=== PATIENT | male | born 1955 | race Caucasian/White ===

== ENCOUNTER → 2018-07-30 07:48 | Outpatient (CLI) | payer OTHER, SELFPAY ==
--- NOTE | 2018-07-30 | DI.US.S_ITS ---
PROCEDURE: US ABD AORTA ANEURYSM SCREEN INDICATIONS: AAA SCREEN TECHNIQUE: Real time scanning was performed of the aorta and iliac arteries, with image documentation. COMPARISON: None. FINDINGS: Aorta: Proximal aortic could not be seen due to bowel gas. Mid-aorta measures 2.0 cm. Distal aortic diameter is 1.9 cm. Iliac arteries: Right common iliac artery measures 1.4 cm. Left common iliac artery measures 1.3 cm. IMPRESSION: The proximal third of the aorta could not be seen due to bowel gas. Elsewhere the aorta and the common iliac arteries appeared normal. Dictated by: Carlos Alberto Albrecht M.D. on 07/30/2018 at 10:36 Approved by: Carlos Alberto Albrecht M.D. on 07/30/2018 at 10:38
== END ==
PROVIDERS: PCP Family Medicine; Visit Provider Family Medicine
DX: Z13.6 Encounter for screening for cardiovascular disorders (principal)
CPT/HCPCS: 76706

== ENCOUNTER → 2018-10-07 13:43 | Outpatient (CLI) | payer OTHER, SELFPAY ==
--- NOTE | 2018-10-07 | DI.MRI.S_ITS ---
PROCEDURE: MR LUMBAR SPINE WO CON INDICATIONS: RIGHT LEG RADICULOPATHY TECHNIQUE: Noncontrast sagittal T1 spin echo and T2 fast echo, sagittal STIR, axial T1 and T2 fast spin echo through the lumbar spine. In cases with scoliosis, additional coronal T2 fast spin echo may be performed. COMPARISON: None. FINDINGS: Image quality: Excellent. Alignment and Curvature: Lumbar levoscoliosis is present. Grade 1 retrolisthesis of L2 on L3 and L3 on L4. Grade 1 retrolisthesis of L5 on S1. Bone Marrow: Diffuse endplate degenerative spurring and signal changes. Chronic appearing L1 compression fracture with mild anterior height loss. No associated marrow edema. Scattered small Schmorl's nodes. No acute vertebral body compression fractures. Subcentimeter rounded signal abnormality is seen in the L1 vertebral body, could be atypical hemangioma although technically nonspecific. Spinal Cord: Conus medullaris terminates at the L1-L2 level. Visualized cord demonstrates normal signal and size. Paraspinous Soft Tissues: No paravertebral masses. L1-L2: Broad-based posterior disc bulge and bilateral facet arthropathy. Mild dorsal epidural lipomatosis. Severe canal narrowing. Partial effacement of both lateral recesses. Moderate left and severe right foraminal narrowing L2-L3: Severe bilateral facet arthropathy. Moderate canal stenosis. Partial effacement of both lateral recesses. Moderate left and severe right foraminal narrowing. L3-L4: Broad-based posterior disc bulge mild surfactant appear ligamentum flavum hypertrophy and severe canal narrowing. There is severe effacement of both lateral recesses. Severe right and moderate left foraminal narrowing. L4-L5: Broad-based posterior disc bulge bilateral facet arthropathy. Moderate canal stenosis. Severe effacement of both lateral recesses. Severe right and mild left foraminal narrowing. L5-S1: Broad-based posterior disc bulge bilateral facet arthropathy. The mild/moderate canal narrowing. Severe effacement of both lateral recesses. Severe left and moderate right foraminal narrowing. IMPRESSION: Lumbar levoscoliosis, diffuse facet arthropathy and multiple spondylolistheses as above. Severe canal stenoses at L1-L2, L3-L4 with moderate canal narrowing elsewhere in the lumbar spine. Diffuse bilateral foraminal stenoses as detailed above. Diffuse, severe bilateral subarticular narrowing is also seen at essentially all lumbar spine levels. Dictated by: Jared Munson M.D. on 10/07/2018 at 14:54 Approved by: Jared Munson M.D. on 10/07/2018 at 15:03
== END ==
PROVIDERS: PCP Family Medicine; Visit Provider Family Medicine
DX: M47.26 Other spondylosis with radiculopathy, lumbar region (principal); M47.27 Other spondylosis with radiculopathy, lumbosacral region; M41.86 Other forms of scoliosis, lumbar region; M43.16 Spondylolisthesis, lumbar region; M43.17 Spondylolisthesis, lumbosacral region; M48.061 Spinal stenosis, lumbar region without neurogenic claudication; M48.07 Spinal stenosis, lumbosacral region
CPT/HCPCS: 72148

== ENCOUNTER → 2019-06-30 11:56 | Outpatient (CLI) | payer OTHER, SELFPAY ==
[2019-07-06 11:40] LABS: PSA Free % 32 % (calc) (> 25); PSA, Total 3.8 ng/mL (< 4.1)
== END ==
PROVIDERS: PCP Family Medicine; Visit Provider Urology
DX: R97.20 Elevated prostate specific antigen [PSA] (principal)
CPT/HCPCS: 36415; 84153; 84154

== ENCOUNTER → 2020-03-16 10:23 | Outpatient (CLI) | payer OTHER, SELFPAY ==
[2020-03-16 10:33] LABS: Bacteria Urine None Seen; RBC Urine None Seen (0-5/HPF); WBC Urine None Seen (0-5/HPF)
[2020-03-16 11:35] LABS: Appearance Urine UA CLEAR; Bilirubin Urine UA NEGATIVE (NEGATIVE); Color Urine UA YELLOW; Glucose Urine UA NEGATIVE (Negative); Ketones Urine UA NEGATIVE (NEGATIVE); Leukocyte Esterase Urine UA NEGATIVE (NEGATIVE); Nitrite Urine UA NEGATIVE (Negative); Occult Blood Urine UA NEGATIVE (Negative); Protein Urine UA NEGATIVE (Negative); Urobilinogen Urine UA 0.2 E.U./dL (0.2); pH Urine UA 5.5 (4.5-8.0)
[2020-03-16 11:39] LABS: Culture Indicated Urine Cult Not Indicated; Urine Comments Microscopic Normal
== END ==
PROVIDERS: PCP Student in an Organized Health Care Education/Training Program; Referring Provider Urology; Visit Provider Urology
DX: Z01.818 Encounter for other preprocedural examination (principal); R39.9 Unspecified symptoms and signs involving the genitourinary system
CPT/HCPCS: 81001

== ENCOUNTER 2020-03-17 10:11 | Emergency (ER) | payer OTHER, SELFPAY ==
[2020-03-17 10:33] VITALS: BP 164/93; PULSE 77; RESP 16; TEMP 37.1; O2SAT 97; BMI 34.5
[2020-03-17] MEDS: LIDOCAINE 2% (UROJET) 5 ML GEL (11:12)
--- NOTE | 2020-03-17 11:12 | PC.NURSE ---
Placed catheter w/o difficulty. No urine output. Placement checked and appears to be in good position (able to move catheter w/o pain, goes all the way to balloon port w/o obstruction). Bladder scan ordered.
--- NOTE | 2020-03-17 11:37 | PC.NURSE ---
Attempted to flush #16 fr urinary catheter, unable to flush and showed small blood clots in tube. Catheter discontinued. #[address] catheter placed w/o difficulty and immediate urine output, blood tinged w/ small flecks of clot out.
[2020-03-17 11:45] LABS: Bacteria Urine None Seen
--- NOTE | 2020-03-17 11:46 | ED.MALEGU ---
HPI - Male Genitourinary General Chief complaint: Urogenital-Male Stated complaint: cannot pee, painful Time Seen by Provider: 03/17/20 11:29 Source: patient Mode of arrival: Ambulatory Limitations: no limitations History of Present Illness HPI Narrative: CC: Urinary retention HPI: The patient is a 64-year-old male who states that he was unable to urinate since last night. Over the last 3 days he has had progressively decreased ability to urinate. He states that this primarily occurs at nighttime. He has an enlarged prostate but denies a history of prostate cancer. He has had a prostate biopsy in the past and has had no kidney disease pyelonephritis or prostatitis. He is denying any significant abdominal pain. He has had no fever chills or sweats no fall or injury no nausea vomiting or diarrhea. He is scheduled next week to have a TURP performed by Dr. Rojas. Related Data Previous Rx's Medication Instructions Recorded cephalexin [Keflex] 500 mg PO TID #15 cap 03/17/20 Allergies Allergy/AdvReac Type Severity Reaction Status Date / Time No Known Drug Allergies Allergy Verified 03/17/20 10:37 Review of Systems Review of Systems Narrative: The patient's review of systems were all negative except for those mentioned in the history of present illness. Patient History Social History Smoking Status: Never smoker Smoking Status: Never smoker alcohol intake frequency: 0-2 drinks per day Substance Use Type: does not use Exam Narrative Exam Narrative: PHYSICAL EXAM: CONSTITUTIONAL: Awake, Alert, Oriented, Coherent, Pleasant ,Cooperative in NAD. Does not appear toxic or ill. HEAD: AT/NC EENT: PERRL, FROM of eyes, NOSE:No epistaxis or nasal drainage MOUTH:Oral mucosa is moist and pink, posterior pharynx is without erythema or exudate. NECK: Supple, no obvious JVD, Trachea is midline without stridor, SPINE: Palpation of the cervical, Thoracic, Lumbar or Sacral spine reveals no gross deformity or tenderness. No CVA tenderness. THORAX: No deformity, retractions, chest wall tenderness. LUNGS: Clear, symmetrical breath sounds without respiratory distress. HEART: Normal heart tones, regular rhythm and rate without murmur. ABDOMEN: Soft, non-tender, normal bowel sounds without guarding, rebound, rigidity or palpable mass. EXTREMITIES: No edema, deformity, tenderness or cyanosis. SKIN: No rash, NEURO: Awake, alert, oriented, conversive, cranial nerves II-XII are symmetrical , moves all 4 extremities and is ambulatory. Initial Vital Signs Initial Vital Signs: Vital Signs Temperature 98.7 F 03/17/20 10:33 Pulse Rate 77 03/17/20 10:33 Respiratory Rate 16 03/17/20 10:33 Blood Pressure 164/93 H 03/17/20 10:33 Pulse Oximetry 97 03/17/20 10:33 Course Course Course Narrative: 1146: Initially the patient did not drain urine and had a couple of blood clots and it was felt that the patient was obstructed from blood clots. The patient now feels much better her and is draining urine. He has benign prostatic hypertrophy with obstructive uropathy. He is scheduled to see Dr. gil for TURP next week. We are waiting for his urine analysis. The patient has no other symptoms. 1230: The patient's urine reveals no infection but hematuria. The patient will be discharged home with a leg bag Orders Ordered: ED Orders 03/17/20 11:15 Urinalysis and Microscopic Stat Vital Signs Vital signs: Vital Signs - 8 hr 03/17/20 10:33 03/17/20 13:34 Temperature 98.7 F Pulse Rate 77 76 Respiratory Rate 16 16 Blood Pressure 164/93 H 154/93 H Pulse Oximetry 97 98 MDM - Male Genitourinary Lab Data Labs: Lab Results 03/17/20 Range/Units 11:15 Urine Color Yellow Urine Appearance Clear Urine pH 5.0 (4.5-8.0) Ur Specific Thurmond 1.025 (1.000-1.035) Urine Protein Negative (Negative) Urine Glucose (UA) Negative (Negative) g/dL Urine Ketones Negative (NEGATIVE) Urine Occult Blood 3+ H (Negative) Urine Nitrate Negative (Negative) Urine Bilirubin Negative (NEGATIVE) Urine Urobilinogen 0.2 (0.2) E.U./dL Ur Leukocyte Esterase Negative (NEGATIVE) Urine RBC >100/hpf H (0-5/HPF) Urine WBC 0-1/hpf (0-5/HPF) Ur Squamous Epith Cells 0-1 /hpf (0-5/HPF) Urine Bacteria None seen (None) Ur Culture Indicated? Cult not indicated Discharge Plan Departure Patient Disposition: Home Clinical Impression: Acute retention of urine Benign prostatic hyperplasia Qualifiers: Lower urinary tract symptom presence: symptoms absent Qualified Code(s): N40.0 - Benign prostatic hyperplasia without lower urinary tract symptoms Hematuria Qualifiers: Hematuria type: unspecified type Qualified Code(s): R31.9 - Hematuria, unspecified Discharge Date/Time: 03/17/20 13:34 Instructions: How to Care for Your Vazquez Catheter -- Male, DI for Urinary Retention in Men Activity Restrictions/Additional Instructions: 1. Follow-up with her Dr. Rojas who is going to perform your TURP. Follow-up with him to remove your catheter. 2. Return to the emergency department if the catheter obstructs you develop persistent uncontrolled nausea vomiting diarrhea, worsening abdominal pain, fever chills or sweats. 3. Take the antibiotic as prescribed. Prescriptions: New cephalexin [Keflex] 500 mg capsule 500 mg PO TID Qty: 15 RF: 0 Referrals: Dorinda Cruz MD [Primary Care Provider] -
[2020-03-17 11:53] LABS: Appearance Urine UA CLEAR; Bilirubin Urine UA NEGATIVE (NEGATIVE); Color Urine UA YELLOW; Glucose Urine UA NEGATIVE (Negative); Ketones Urine UA NEGATIVE (NEGATIVE); Leukocyte Esterase Urine UA NEGATIVE (NEGATIVE); Nitrite Urine UA NEGATIVE (Negative); Occult Blood Urine UA 3+ (Negative); Protein Urine UA NEGATIVE (Negative); Specific Gravity Urine UA 1.025 (1.000-1.035); Urobilinogen Urine UA 0.2 E.U./dL (0.2)
[2020-03-17 12:01] LABS: Culture Indicated Urine Cult Not Indicated; RBC Urine >100/HPF (0-5/HPF); Squamous Epithelial Cell Urine 0-1 /HPF (0-5/HPF); WBC Urine 0-1/HPF (0-5/HPF)
[2020-03-17 13:34] VITALS: BP 154/93; PULSE 76; RESP 16; O2SAT 98
== END 2020-03-17 13:34 | disposition home or self-care (01) ==
PROVIDERS: Emergency Provider Emergency Medicine; PCP Student in an Organized Health Care Education/Training Program
DX: R33.9 Retention of urine, unspecified (principal); R31.9 Hematuria, unspecified; N40.0 Benign prostatic hyperplasia without lower urinary tract symptoms
CPT/HCPCS: 51701; 51798; 81001; 99284

== ENCOUNTER 2020-03-22 21:45 | Emergency (ER) | payer OTHER, SELFPAY ==
[2020-03-22 21:56] VITALS: BP 141/84; PULSE 87; RESP 18; TEMP 36.7; O2SAT 97
--- NOTE | 2020-03-22 23:34 | ED.MALEGU ---
HPI - Male Genitourinary General Chief complaint: Urogenital-Male Stated complaint: BLOCKED CATHETER Time Seen by Provider: 03/22/20 22:14 Source: patient Mode of arrival: Ambulatory Limitations: no limitations History of Present Illness HPI Narrative: Patient here for malfunction of Vazquez catheter. Patient here 5 days ago for urinary retention and a 18 [place] Vazquez catheter placed. Has history of BPH. Does have a urologist. Has appointment this Friday. Today had leaking around the catheter. Nurses tried flushing and patient has spasms and does get returned within no spasms. Changing out catheter to a larger size unsuccessful. Denies any fever chills or recent illness. Related Data Previous Rx's Medication Instructions Recorded cephalexin [Keflex] 500 mg PO TID #15 cap 03/17/20 Allergies Allergy/AdvReac Type Severity Reaction Status Date / Time No Known Drug Allergies Allergy Verified 03/17/20 10:37 Review of Systems Review of Systems Narrative: GENERAL: Denies chills, fatigue, malaise, fever, sweats. HEENT: Denies sinus pain, ear pain, sore throat, difficulty swallowing, dizziness. RESPIRATORY: Denies dyspnea, cough, wheezing, hemoptysis, sputum. CARDIOVASCULAR: Denies chest pain, palpitations, orthopnea, edema, GASTROINTESTINAL: Denies nausea, vomiting, abdominal pain, diarrhea, constipation, melena. : Complains of leaking around the Vazquez catheter MUSCULOSKELETAL: denies weakness, joint pain, or bony pain SKIN: Denies rash, skin lesions, or other NEUROLOGIC: Denies weakness, headache, numbness, change in speech, confusion, seizures, incoordination. PSYCHIATRIC: No concerning psychosocial issues. ROS Unobtainable: All systems reviewed & are unremarkable except as noted in HPI and below Patient History Social History Smoking Status: Never smoker Smoking Status: Never smoker alcohol intake frequency: 0-2 drinks per day Substance Use Type: does not use Exam Narrative Exam Narrative: GENERAL: patient appears stated age. Well-nourished, well-developed patient, in no distress, not toxic HEAD: Atraumatic. Normocephalic. : No blood at meatus. At bedside with nurse flushing catheter. Able to irrigate with no spasms. No blood. NEURO: AOx3. SKIN: No rash or erythema of visible areas Initial Vital Signs Initial Vital Signs: Vital Signs Temperature 98.1 F 03/22/20 21:56 Pulse Rate 87 03/22/20 21:56 Respiratory Rate 18 03/22/20 21:56 Blood Pressure 141/84 H 03/22/20 21:56 Pulse Oximetry 97 03/22/20 21:56 Course Course Course Narrative: Unable to get larger Vazquez in. Patient states he would just like a smaller catheter in and be discharged home Orders Ordered: Discontinued Medications Lidocaine HCl (Urojet) 5 ml TOP NOW ONE Stop: 03/22/20 23:39 Reevaluation(s) Reevaluation #1: Smaller catheter placed in by nurse. Does have urine flow. No leaking at this time Time: 00:15 Vital Signs Vital signs: Vital Signs - 8 hr 03/22/20 21:56 03/23/20 01:09 Temperature 98.1 F Pulse Rate 87 64 Respiratory Rate 18 16 Blood Pressure 141/84 H 114/64 Pulse Oximetry 97 96 MDM - Male Genitourinary MDM Narrative Medical decision making narrative: No labs indicate this time. Patient is here for malfunction Vazquez catheter. Discharge Plan Departure Patient Disposition: Home Clinical Impression: Malfunction of Vazquez catheter Qualifiers: Encounter type: initial encounter Qualified Code(s): T83.011A - Breakdown (mechanical) of indwelling urethral catheter, initial encounter Discharge Date/Time: 03/23/20 01:09 Instructions: How to Care for Your Vazquez Catheter -- Male Activity Restrictions/Additional Instructions: Return immediately if worse. Continue home medications. See the urologist on Friday as scheduled. Prescriptions: No Action cephalexin [Keflex] 500 mg capsule 500 mg PO TID Qty: 15 RF: 0 Referrals: Dorinda Cruz MD [Primary Care Provider] -
--- NOTE | 2020-03-23 00:46 | PC.NURSE ---
He came with an excoriated area on the tip of his penis,this was present prior to my attempt at wade insertion,[place] turner had one unsuccessfull attempt at cathing him prior to my insertion with sterile technique.
[2020-03-23 01:09] VITALS: BP 114/64; PULSE 64; RESP 16; O2SAT 96
== END 2020-03-23 01:09 | disposition home or self-care (01) ==
PROVIDERS: Emergency Provider Emergency Medicine; PCP Student in an Organized Health Care Education/Training Program
DX: T83.011A Breakdown (mechanical) of indwelling urethral catheter, initial encounter (principal)
CPT/HCPCS: 51701; 51705; 51798; 99284

== ENCOUNTER 2020-03-25 08:33 | Emergency (ER) | payer OTHER, SELFPAY ==
[2020-03-25 08:34] VITALS: BP 148/76; PULSE 93; RESP 16; TEMP 36.6; O2SAT 95; BMI 33.9
--- NOTE | 2020-03-25 08:34 | ED.MALEGU ---
HPI - Male Genitourinary General Chief complaint: Urogenital-Male Stated complaint: Cathetor not working Time Seen by Provider: 03/25/20 08:34 Source: patient Mode of arrival: Ambulatory Limitations: no limitations History of Present Illness HPI Narrative: 64-year-old male nonsmoker with a history of BPH, recent urinary retention presents with a malfunctioning Wade catheter. He had been seen here recently for urinary retention and had a Wade catheter placed and had a TURP performed yesterday. He had been draining fine until he switch to his leg bag and now states that there is no urine in the bag. He has little bit of suprapubic tenderness but is otherwise and free of complaint. He contacted his urologist (Dr. Rojas at [facility]) and was encouraged to present here for evaluation MD Complaint: other Onset (ago): hour(s) Duration: constant Location: abdomen Radiation: penis Severity: mild Quality: aching Relieving factors: none Exacerbating factors: none Context: recent surgery Associated symptoms: Reports denies other symptoms Related Data Previous Rx's Medication Instructions Recorded cephalexin [Keflex] 500 mg PO TID #15 cap 03/17/20 Allergies Allergy/AdvReac Type Severity Reaction Status Date / Time Sulfa (Sulfonamide Allergy Verified 03/25/20 08:39 Antibiotics) Review of Systems Constitutional Constitutional: Denies chills, Denies fatigue, Denies fever(s), Denies frequent falls, Denies lethargy and Denies weakness Eyes Eyes: Denies change in vision, Denies eye discharge, Denies irritation and Denies loss of vision ENT Ears, Nose, Mouth, and Throat: Denies change in voice, Denies dizziness, Denies neck pain, Denies sore throat and Denies throat swelling Cardiovascular Cardiovascular: Denies chest pain, Denies irregular heart rhythm, Denies lightheadedness, Denies palpitations, Denies dyspnea, Denies dyspnea on exertion and Denies orthopnea Respiratory Respiratory: Denies cough, Denies dyspnea, Denies dyspnea on exertion and Denies wheezing Gastrointestinal Gastrointestinal: Denies abdominal pain, Denies change in bowel habits, Denies diarrhea, Denies nausea and Denies vomiting Genitourinary Genitourinary: Reports difficulty voiding Musculoskeletal Musculoskeletal: Denies neck pain and Denies numbness Integumentary/Breasts Skin/Breast: Denies pruritus, Denies erythema, Denies rash and Denies wounds Neurologic Neurologic: Denies behavioral changes, Denies confusion, Denies dizziness, Denies frequent falls, Denies loss of vision, Denies numbness and Denies weakness Psychiatric Psychiatric: Denies anxiety, Denies behavioral changes, Denies confusion, Denies depression, Denies homicidal ideation and Denies suicidal ideation Endocrine Endocrine: Denies fatigue, Denies flushing and Denies palpitations Hematologic/Lymphatic Hematologic/Lymphatic: Denies easy bruising Allergic/Immunologic Allergic/Immunologic: Denies urticaria, Denies throat swelling and Denies wheezing Patient History Social History Smoking Status: Never smoker Smoking Status: Never smoker alcohol intake frequency: 0-2 drinks per day Substance Use Type: does not use Exam Narrative Exam Narrative: GEN: AOx3 and in mild distress EYES: Pupils are equal, round, and reactive to light and accommodation. Extraoccular muscles are intact bilaterally. There is no subconjunctival hemorrhage or exudate. CHEST: Lungs are clear to auscultation bilaterally and free of wheezes, rales, or rhonchi. Heart rate is regular rhythm, there are no murmurs, clicks, rubs, or gallops. There is no chest wall tenderness. ABD: Abdomen is soft and nontender. There is no guarding or rebound. Bowel sounds are normal in all 4 quadrants. There is no mass or organomegaly. EXT: Full painless ROM of all extremities with no loss of sensation or strength. SKIN: Warm, pink, and dry. No erythema or rash Initial Vital Signs Initial Vital Signs: Vital Signs Temperature 97.9 F 03/25/20 08:34 Pulse Rate 93 H 03/25/20 08:34 Respiratory Rate 16 03/25/20 08:34 Blood Pressure 148/76 H 03/25/20 08:34 Pulse Oximetry 95 03/25/20 08:34 Course Course Course Narrative: bladder scan notes 23mL wade flushed by nursing. Consultations Consultation #1: call to Dr. Rojas ([facility]). Discussed case. He recommends removal of wade and he will see patient on Friday morning. Return precautions given and he must return if he becomes unable to urinate. Vital Signs Vital signs: Vital Signs - 8 hr 03/25/20 08:34 03/25/20 09:20 Temperature 97.9 F Pulse Rate 93 H 100 H Respiratory Rate 16 Blood Pressure 148/76 H 148/76 H Pulse Oximetry 95 99 Discharge Plan Departure Patient Disposition: Home Clinical Impression: Malfunction of Wade catheter Qualifiers: Encounter type: initial encounter Qualified Code(s): T83.011A - Breakdown (mechanical) of indwelling urethral catheter, initial encounter Discharge Date/Time: 03/25/20 09:14 Instructions: DI for Urinary Retention in Men Activity Restrictions/Additional Instructions: There is no evidence of an emergent or life threatening illness at this time, but follow up with your doctor in 1-2 days is recommended nonetheless to continue to rule out serious underlying causes of your symptoms. Please call the office for an appointment. Please return to the Emergency Department for any worsening or persistent symptoms such as inability to urinate. Please continue to take medications as directed. Prescriptions: No Action cephalexin [Keflex] 500 mg capsule 500 mg PO TID Qty: 15 RF: 0 Referrals: Dorinda Cruz MD [Primary Care Provider] - Micky Rojas DO [Non-Staff] -
--- NOTE | 2020-03-25 09:05 | PC.NURSE ---
Pt had TURP yesterday,no urine out today
[2020-03-25 09:20] VITALS: BP 148/76; PULSE 100; O2SAT 99
== END 2020-03-25 09:14 | disposition home or self-care (01) ==
PROVIDERS: Emergency Provider Emergency Medicine; PCP Student in an Organized Health Care Education/Training Program
DX: T83.011A Breakdown (mechanical) of indwelling urethral catheter, initial encounter (principal); R33.8 Other retention of urine
CPT/HCPCS: 51798; 99282; 99283

== ENCOUNTER → 2021-07-11 08:50 | Outpatient (CLI) | payer OTHER, SELFPAY ==
[2021-07-11 13:07] LABS: COVID19 -Nasal RAPID Negative (Negative)
== END ==
PROVIDERS: PCP Student in an Organized Health Care Education/Training Program; Visit Provider Nurse Practitioner Family
DX: Z20.822 Contact with and (suspected) exposure to COVID-19 (principal)
CPT/HCPCS: 87635

== ENCOUNTER 2021-07-13 12:51 | Day surgery (SDC) | payer OTHER, SELFPAY ==
--- NOTE | 2021-07-13 11:37 | PM.HP.1 ---
History of Present Illness History of Present Illness Date Patient Seen: 07/13/21 Chief complaint: SCREENING COLONOSCOPY Narrative: 66 year old male comes in today for consideration of a screening colonoscopy. Last colonoscopy in 2016, normal. There have been no lower GI symptoms suggesting disease such as change in bowel habits, bleeding, abdominal pain or anemia. There's been no family history of colon cancer or colon polyps. Overall health issues have been stable, including no major cardiac events for at least 6 weeks. PCP: Dr. Cruz Past Medical History: Malaria, 1995 HYPERLIPIDEMIA OSTEOARTHRITIS LUMBAR RADICULOPATH OBESITY (BMI <40) BPH W/URINARY OBSTRUCTION Lower extremity edema, right ERECTILE DYSFUNCTION Actinic keratosis Past Surgical History: Hip replacement right 12/2009 Spine 2003 Hip Replacement Left 2014 Rotator cuff repair 1999 TURP 03/2020 Colonoscopy, 2016, normal Family History: Father: Prostate cancer age 84 Mother: age 86, CVA Family Hx Prostate Cancer Social History: Marital Status: Children: Indio 1981 and Meghan Anthony 1984 Occupation: Plastic Finisher Household Members: Tanisha Ponce 01/18/52 Education: [employer] Alcohol drinks/day: 2/day >5/day in last 3 mos: no Caffeine use/day: 3 Type of Exercise: none Guns in home: no Dental Care w/in 6 mos.: no Sun Exposure: occasionally Seat Belt Use: 100% Smoking Status: former smoker Tobacco Type: cigarettes quit smokin Drug Use: never HIV High Risk Behavior: no Patient History Family & Social History Tobacco & Substance use: Smoking Status Never smoker alcohol intake frequency 0-2 drinks per day Substance Use Type does not use Meds Home Medications and Allergies Home Medications Medication Instructions Recorded Confirmed Type atorvastatin 10 mg tablet 10 mg PO DAILY 07/13/21 07/13/21 History sildenafil 100 mg tablet 100 mg PO DAILY PRN 07/13/21 07/13/21 History terazosin 10 mg capsule 10 mg PO DAILY 07/13/21 07/13/21 History Allergies Allergy/AdvReac Type Severity Reaction Status Date / Time Sulfa (Sulfonamide Allergy Verified 07/13/21 13:23 Antibiotics) Review of Systems Review of Systems Narrative: All remaining ROS were reviewed and negative except as addressed. Exam Narrative Exam Narrative: GENERAL: Alert and oriented, appearing stated age and in no acute distress. HEENT: Head normocephalic/atraumatic. LUNGS: Clear to ausculation bilaterally, no wheezes, rhonchi or rales. CV: Normal S1 and S2 with regular rate and rhythm, no audible murmurs, rubs or gallops. ABDOMEN: Soft, non-tender, non-distended, no organomegaly. Positive bowel sounds. EXTREMITIES: No clubbing, cyanosis, or edema. NEURO: Cranial nerves II through XII grossly intact, no focal deficits. PSYCH: Alert and oriented x 3. SKIN: No concerning lesions. Assessment & Plan Assessment & Plan narrative: 1. Screening for colon cancer Plan for colonoscopy. The nature and character of the procedure as well as anticipated results were discussed. The possibility of not completing the procedure was also discussed. Possible complications including aspiration pneumonia, bleeding, perforation and reaction to medications either for sedation or preparation and missed lesions were discussed. Questions were answered and proceeding to the colonoscopy was elected. Informed consent signed. I sincerely appreciate the referral allowing me to participate in this patient's care. Please contact me with any questions or concerns.
--- NOTE | 2021-07-13 11:42 | PM.OP.COLON ---
Operative Date/Time/Diagnoses Date of procedure: 07/13/21 Procedure Notes SCOAP/Timeout: 2:18 p.m. Procedure in detail: ENDOSCOPIST: Dorinda Cruz MD Sedation RN: Raegan Block RN Sedation start time: 2:19 p.m. Sedation end time: 2:48 p.m. PROCEDURE: Colonoscopy INDICATIONS: 1. Screening for colon cancer MEDICATION: Levsin 0.125 mg sublingual, incremental doses of Versed and fentanyl until appropriate level sedation achieved. ASA CLASS: 2 CECAL WITHDRAWAL TIME: 18 minutes COMPLICATIONS: None. EXTENT OF PROCEDURE: Cecum. QUALITY OF PREP: Good with portions of liquid stool. PROCEDURE: Prior to insertion of the colonoscope, a digital rectal examination was accomplished with circumferential palpation of the distal rectal mucosa without significant findings being noted. The high-definition colonoscope was passed into the rectum in the usual fashion and advanced over to the cecum without difficulty. The ileocecal valve, appendiceal stoma, and medial wall all could be inspected and no abnormalities were seen. ASCENDING COLON: As the colonoscope was withdrawn, care was taken to expose and inspect the haustral folds and no abnormalities were seen. HEPATIC FLEXURE: Normal, no polyps, diverticula or other abnormalities. TRANSVERSE COLON: Normal, no polyps, diverticula or other abnormalities. DESCENDING COLON: Normal, no polyps, diverticula or other abnormalities. SIGMOID COLON: Normal, no polyps, diverticula or other abnormalities. RECTUM: Normal. J maneuver was produced. There was no significant perianal disease. The J maneuver was broken. The remainder of the rectum was inspected and there was no external hemorrhoid disease. The scope was withdrawn. IMPRESSION: 1. Normal colonoscopy PLAN: 1. Repeat colonoscopy in 10 years. The possibility of a missed lesion including a malignancy has been discussed with the patient previously. Potential alarm symptoms have been discussed and should be reported immediately.
[2021-07-13 13:13] VITALS: BP 127/88; PULSE 84; RESP 16; TEMP 36.6; O2SAT 96; BMI 33.9
[2021-07-13] MEDS: LACTATED RINGERS 1,000 ML 200 ML IV (13:22)
[2021-07-13] MEDS: HYOSCYAMINE 0.125 MG TABLET PO (13:28)
[2021-07-13] MEDS: FLEETS ENEMA 1 EACH PR (13:29)
--- NOTE | 2021-07-13 13:35 | SUR.PREOP ---
pt's stool was cloudy and had some chunks of stool. Informed Dr. Cruz and she ordered a fleets enema. Gave pt enema.
[2021-07-13] MEDS: fentaNYL 250 MCG/5 ML INJ IV (14:50)
[2021-07-13] MEDS: MIDAZOLAM 5 MG/5 ML VIAL IV (14:51)
[2021-07-13 15:00] VITALS: BP 124/82; PULSE 73; RESP 16; TEMP 36.6; O2SAT 95
== END 2021-07-13 15:30 | disposition home or self-care (01) ==
PROVIDERS: PCP Student in an Organized Health Care Education/Training Program; Referring Provider Student in an Organized Health Care Education/Training Program; Visit Provider Student in an Organized Health Care Education/Training Program
PROC: 0DJD8ZZ Inspection of Lower Intestinal Tract, Via Natural or Artificial Opening Endoscopic (ICD-10-PCS; CPT 45378; principal; 2021-07-13 13:45)
DX: Z12.11 Encounter for screening for malignant neoplasm of colon (principal)
CPT/HCPCS: G0121; J2250; J3010

== ENCOUNTER → 2022-07-26 14:07 | Outpatient (CLI) | payer OTHER, SELFPAY ==
[2022-07-26 15:59] LABS: Influenza A - CEPHEID Flu A NEGATIVE (NEGATIVE); Influenza B - CEPHEID Flu B NEGATIVE (NEGATIVE); Respiratory Syncytial Virus Negative (Negative)
[2022-07-26 16:22] LABS: COVID-19 CEPHEID 4-PLEX PCR Negative (Negative)
== END ==
PROVIDERS: PCP Student in an Organized Health Care Education/Training Program; Visit Provider Registered Nurse
DX: R10.9 Unspecified abdominal pain (principal); R50.9 Fever, unspecified
CPT/HCPCS: 0241U; 87077; 87086; 87185; 87186

== ENCOUNTER → 2022-07-26 14:41 | Outpatient (CLI) | payer OTHER, SELFPAY ==
[2022-07-26 15:35] LABS: Add Manual Diff / Slide Review NO; Basophils Absolute Auto 0 /uL (0-100); Eosinophils Absolute Auto 0 /uL (0-450); Eosinophils Percent Auto 0.6 % (2-4); Hematocrit 45.8 % (41-53); Lymphocytes Absolute Auto 1200 /uL (1100-4500); Lymphocytes Percent Auto 24.8 % (25-40); Mean Corpuscular Hemoglobin 32.3 PG (26-34); Mean Corpuscular Volume 92.3 fL (80-100); Monocytes Absolute Auto 600 /uL (0-900); Neutrophils Absolute Auto 3000 /uL (1500-7000); Neutrophils Percent Auto 61.6 % (50-75); Platelet Count 163 X10^3/uL (150-400); Red Blood Cell Count 4.96 X10^6/uL (4.5-5.9); Red Cell Distribution Width 13.4 % (11.6-14.8); White Blood Cell Count 4.9 X10^3/uL (4.5-11.0)
[2022-07-26 16:22] LABS: Alanine Aminotransferase 40 IU/L (<50); Albumin 3.8 g/dL (3.5-5.0); Albumin Globulin Ratio 1.2 (1.0-2.8); Alkaline Phosphatase 82 U/L (38-126); Aspartate Aminotransferase 39 IU/L (17-59); BUN Creatinine Ratio 18.4 (6-22); Bilirubin Total 0.8 mg/dL (0.2-1.3); Blood Urea Nitrogen 19 mg/dL (9-20); Calcium 8.1 mg/dL (8.4-10.2); Carbon Dioxide 24 mmol/L (22-32); Chloride 106 mmol/L (98-107); Estimated Glomerular Filt Rate > 60 mL/min (>60); Globulin 3.1 g/dL (1.7-4.1); Glucose 98 mg/dL (80-110); HEMOLYSIS < 15 (0-50); Potassium 4.1 mmol/L (3.4-5.1); Sodium 137 mmol/L (137-145); Total Protein 6.9 g/dL (6.3-8.2)
== END ==
PROVIDERS: PCP Internal Medicine; Referring Provider Family Medicine; Visit Provider Family Medicine
DX: R10.9 Unspecified abdominal pain (principal); R50.9 Fever, unspecified
CPT/HCPCS: 0241U; 36415; 80053; 85025; 87077; 87086; 87185; 87186

== ENCOUNTER 2023-02-22 10:01 | Emergency (ER) | payer OTHER, SELFPAY ==
[2023-02-22 10:05] VITALS: BP 150/80; PULSE 73; RESP 16; TEMP 36.4; O2SAT 99; BMI 34.5
--- NOTE | 2023-02-22 10:20 | DI.CT.S_ITS ---
PROCEDURE: CT ABDOMEN PELVIS WO/W CON INDICATIONS: painless hematuria, large amount, prior TURP TECHNIQUE: After the administration of oral contrast, 5 mm thick sections acquired from the diaphragms to the iliac crests. After the administration of intravenous contrast, 5 mm thick sections acquired from the diaphragms to the symphysis. 5 mm thick coronal and sagittal reformats were acquired. For radiation dose reduction, the following was used: automated exposure control, adjustment of mA and/or kV according to patient size. COMPARISON: None. FINDINGS: Image quality bilateral hip prosthesis obscures multiple images in the pelvis. Lower thorax: The lung bases are clear. Heart size normal. No hiatal hernia. Liver: Hepatic hypodensities measure up to 3 cm, consistent with cyst Biliary system: No calcified cholelithiasis or pericholecystic inflammation. No intra or extrahepatic bile duct dilatation. Pancreas: Unremarkable without mass or inflammation evident. Spleen: Normal in size and density. Adrenals: Normal morphology and density. Reproductive system: As below Urinary system: Unremarkable bilateral kidneys without hydronephrosis or renal calculi. There is bladder wall thickening with increased trabeculation. Prostate hypertrophy elevates the bladder floor. Gastrointestinal system: The bowel is unremarkable without evidence of bowel obstruction or inflammation. The stomach appears unremarkable. Appendix: No findings to suggest acute appendicitis. Peritoneal spaces: No mesenteric or retroperitoneal adenopathy. No free air. No free fluid. Vasculature: The IVC, aorta and iliac vasculature are unremarkable. Abdominal wall: Abdominal wall intact without evidence of ventral or inguinal hernias. 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 No evidence of renal calculi or obstructive uropathy. 2. Prosthetic hypertrophy and bladder wall thickening Approved by: Nolan Dailey M.D. on 02/22/2023 at 10:57
[2023-02-22 10:21] LABS: Appearance Urine UA CLEAR; Bilirubin Urine UA 1+ (NEGATIVE); Color Urine UA YELLOW; Glucose Urine UA NEGATIVE (Negative); Ketones Urine UA NEGATIVE (NEGATIVE); Leukocyte Esterase Urine UA TRACE (NEGATIVE); Nitrite Urine UA POSITIVE (Negative); Occult Blood Urine UA 3+ (Negative); Protein Urine UA 2+ (Negative)
[2023-02-22 10:29] LABS: Bacteria Urine Many (>30); Culture Indicated Urine Specimen Cultured; Ictotest Urine Negative (Negative); RBC Urine >100/HPF (0-5/HPF); Squamous Epithelial Cell Urine None Seen (0-5/HPF); WBC Urine 30-100/HPF (0-5/HPF)
--- NOTE | 2023-02-22 10:32 | ED_ITS ---
HPI - Male Genitourinary <ARTEM Zhou - Last Filed: 02/22/23 12:18> General Chief complaint: Urogenital-Male Stated complaint: blood in urine Time Seen by Provider: 02/22/23 10:05 History of Present Illness HPI Narrative: This is a 67-year-old gentleman with a history of TURP procedure who is not anticoagulated and presents to the emergency department reporting painless hematuria which started today on his 2nd void of the day. States that he has be en feeling fatigued and not as good as usual today but denies pain anywhere. States that he does not have abdominal pain, has not had urinary changes, states that he is up frequently in the night most nights. His urologist is Dr. Rojas. Patient denies any stool changes. Denies fever or chills. Patient has history of Enterococcus faecalis urinary infection showing resistance to tetracycline. Patient has history of allergy to sulfa Related Data Home Medications Medication Instructions Recorded Confirmed atorvastatin 10 mg tablet 10 mg PO DAILY 07/13/21 07/13/21 sildenafil 100 mg tablet 100 mg PO DAILY PRN Sexual Activity 07/13/21 07/13/21 terazosin 10 mg capsule 10 mg PO DAILY 07/13/21 07/13/21 Previous Rx's Medication Instructions Recorded ciprofloxacin HCl 500 mg tablet 500 mg PO BID #12 tabs 07/29/22 levofloxacin 750 mg tablet 750 mg PO DAILY 10 days #10 tabs 02/22/23 Allergies Allergy/AdvReac Type Severity Reaction Status Date / Time Sulfa (Sulfonamide Allergy Verified 07/13/21 13:23 Antibiotics) Review of Systems <ARTEM Zhou - Last Filed: 02/22/23 12:18> Review of Systems ROS Unobtainable: All systems reviewed & are unremarkable except as noted in HPI and below Patient History <ARTEM Zhou - Last Filed: 02/22/23 12:18> Social History household members: spouse Smoking Status: Never smoker alcohol intake: current Smoking Status: Never smoker alcohol intake frequency: 0-2 drinks per day Substance Use Type: does not use Exam <ARTEM Zhou - Last Filed: 02/22/23 12:18> Narrative Exam Narrative: Reviewed vitals signs and nursing notes. General: Pleasant, sitting upright, in no acute distress, well groomed, afebrile HEENT: symmetrical facial expressions, moist mucous membranes, neck is supple CV: regular rate and rhythm, warm extremities without edema Respiratory: normal work of breathing, without tachypnea or hypoxia. GI: abdomen soft, nondistended, without CVA tenderness bilaterally, no suprapubic or inguinal tenderness to palpation, no hernia MSK: moves all extremities, no weakness, normal tone, ambulatory without deficit Skin: brisk capillary refill, without rash or wound Neuro: clear speech and normal cognition, A&O x3, GCS 15, no focal motor or sensation deficits Initial Vital Signs Initial Vital Signs: Vital Signs Temperature 97.5 F L 02/22/23 10:05 Pulse Rate 73 02/22/23 10:05 Respiratory Rate 16 02/22/23 10:05 Blood Pressure 150/80 H 02/22/23 10:05 Pulse Oximetry 99 02/22/23 10:05 Oxygen Delivery Method Room Air 02/22/23 10:05 <Clint Hernandes DO - Last Filed: 02/22/23 12:31> Initial Vital Signs Initial Vital Signs: Vital Signs Temperature 97.5 F L 02/22/23 10:05 Pulse Rate 73 02/22/23 10:05 Respiratory Rate 16 02/22/23 10:05 Blood Pressure 150/80 H 02/22/23 10:05 Pulse Oximetry 99 02/22/23 10:05 Oxygen Delivery Method Room Air 02/22/23 10:05 Course <ARTEM Zhou - Last Filed: 02/22/23 12:18> Orders Ordered: ED Orders 02/22/23 10:10 Ictotest Urine Stat Urinalysis and Microscopic Stat Urine Culture Stat 02/22/23 10:20 IVP [CT abdomen pelvis wo/w con] Stat 02/22/23 10:25 Complete Blood Count AUTO DIFF Stat Comprehensive Metabolic Panel Stat Prothrombin Time INR Stat 02/22/23 10:40 Blood Culture Stat Discontinued Medications Ceftriaxone Sodium 2,000 mg/ (Sodium Chloride) 100 mls @ 200 mls/hr IV NOW ONE Stop: 02/22/23 10:37 Last Admin: 02/22/23 10:58 Dose: Not Given Documented By: RB Sodium Chloride (Normal Saline 0.9%) 1,000 mls @ 1,000 mls/hr IV BOLUS ONE Stop: 02/22/23 11:36 Last Infusion: 02/22/23 12:12 Dose: 0 mls/hr Documented By: Infusion: 02/22/23 11:25 Dose: 1,000 mls/hr Documented By: Infusion: 02/22/23 11:05 Dose: 0 mls/hr Documented By: Admin: 02/22/23 11:02 Dose: 1,000 mls/hr Documented By: RB Levofloxacin (Levofloxacin 250 Mg Tablet) 750 mg PO NOW ONE Stop: 02/22/23 10:43 Last Admin: 02/22/23 11:03 Dose: 750 mg Documented By: RB Vital Signs Vital signs: Vital Signs - 8 hr 02/22/23 10:05 02/22/23 11:28 02/22/23 11:29 Temperature 97.5 F L Pulse Rate 73 73 Respiratory Rate 16 Blood Pressure 150/80 H 162/84 H Pulse Oximetry 99 97 Oxygen Delivery Method Room Air 02/22/23 11:29 Temperature Pulse Rate 73 Respiratory Rate Blood Pressure Pulse Oximetry 97 Oxygen Delivery Method <Clint Hernandes DO - Last Filed: 02/22/23 12:31> Orders Ordered: ED Orders 02/22/23 10:10 Ictotest Urine Stat Urinalysis and Microscopic Stat Urine Culture Stat 02/22/23 10:20 IVP [CT abdomen pelvis wo/w con] Stat 02/22/23 10:25 Complete Blood Count AUTO DIFF Stat Comprehensive Metabolic Panel Stat Prothrombin Time INR Stat 02/22/23 10:40 Blood Culture Stat Discontinued Medications Ceftriaxone Sodium 2,000 mg/ (Sodium Chloride) 100 mls @ 200 mls/hr IV NOW ONE Stop: 02/22/23 10:37 Last Admin: 02/22/23 10:58 Dose: Not Given Documented By: RB Sodium Chloride (Normal Saline 0.9%) 1,000 mls @ 1,000 mls/hr IV BOLUS ONE Stop: 02/22/23 11:36 Last Infusion: 02/22/23 12:12 Dose: 0 mls/hr Documented By: Infusion: 02/22/23 11:25 Dose: 1,000 mls/hr Documented By: Infusion: 02/22/23 11:05 Dose: 0 mls/hr Documented By: Admin: 02/22/23 11:02 Dose: 1,000 mls/hr Documented By: RB Levofloxacin (Levofloxacin 250 Mg Tablet) 750 mg PO NOW ONE Stop: 02/22/23 10:43 Last Admin: 02/22/23 11:03 Dose: 750 mg Documented By: RB Vital Signs Vital signs: Vital Signs - 8 hr 02/22/23 10:05 02/22/23 11:28 02/22/23 11:29 Temperature 97.5 F L Pulse Rate 73 73 Respiratory Rate 16 Blood Pressure 150/80 H 162/84 H Pulse Oximetry 99 97 Oxygen Delivery Method Room Air 02/22/23 11:29 Temperature Pulse Rate 73 Respiratory Rate Blood Pressure Pulse Oximetry 97 Oxygen Delivery Method MDM - Male Genitourinary <ARTEM Zhou - Last Filed: 02/22/23 12:18> Lab Data 02/22/23 10:25 02/22/23 10:25 Labs: Lab Results 02/22/23 02/22/23 02/22/23 Range/Units 10:10 10:25 10:25 WBC 8.9 (4.5-11.0) X10^3/uL RBC 4.93 (4.5-5.9) X10^6/uL Hgb 16.2 (13.5-17.5) g/dL Hct 46.5 (41-53) % MCV 94.5 (80-100) fL MCH 32.9 (26-34) PG MCHC 34.8 (30-36) % RDW 13.1 (11.6-14.8) % Plt Count 237 (150-400) X10^3/uL Neut % (Auto) 67.2 (50-75) % Lymph % (Auto) 21.1 L (25-40) % [place] % (Auto) 8.7 (3-14) % Eos % (Auto) 2.0 (2-4) % Baso % (Auto) 1.0 (0-2) % Neut # (Auto) 6000 (0531-8667) /uL Lymph # (Auto) 1900 (8459-9545) /uL [place] # (Auto) 800 (0-900) /uL Eos # (Auto) 200 (0-450) /uL Baso # (Auto) 100 (0-100) /uL PT 12.8 H (10.1-12.7) SECONDS INR 1.1 (0.9-1.3) Sodium (137-145) mmol/L Potassium (3.4-5.1) mmol/L Chloride (98-107) mmol/L Carbon Dioxide (22-32) mmol/L BUN (9-20) mg/dL Creatinine (0.66-1.25) mg/dL Estimated GFR (>60) mL/min BUN/Creatinine Ratio (6-22) Glucose (80-110) mg/dL Calcium (8.4-10.2) mg/dL Total Bilirubin (0.2-1.3) mg/dL AST (17-59) IU/L ALT (<50) IU/L Alkaline Phosphatase (38-126) U/L Total Protein (6.3-8.2) g/dL Albumin (3.5-5.0) g/dL Globulin (1.7-4.1) g/dL Albumin/Globulin Ratio (1.0-2.8) Urine Color Yellow Urine Appearance Clear Urine pH 5.0 (4.5-8.0) Ur Specific [place] 1.020 (1.000-1.035) Urine Protein 2+ H (Negative) Urine Glucose (UA) Negative (Negative) g/dL Urine Ketones Negative (NEGATIVE) Urine Occult Blood 3+ H (Negative) Urine Nitrate Positive H (Negative) Urine Bilirubin 1+ H (NEGATIVE) Ur Bilirubin Confirm Negative (Negative) Urine Urobilinogen 1.0 (0.2) E.U./dL Ur Leukocyte Esterase Trace H (NEGATIVE) Urine RBC >100/hpf H (0-5/HPF) Urine WBC 30-100/hpf H (0-5/HPF) Ur Squamous Epith Cells None seen (0-5/HPF) Urine Bacteria Many (>30) H (None) Ur Culture Indicated? Specimen cultured 02/22/23 Range/Units 10:25 WBC (4.5-11.0) X10^3/uL RBC (4.5-5.9) X10^6/uL Hgb (13.5-17.5) g/dL Hct (41-53) % MCV (80-100) fL MCH (26-34) PG MCHC (30-36) % RDW (11.6-14.8) % Plt Count (150-400) X10^3/uL Neut % (Auto) (50-75) % Lymph % (Auto) (25-40) % [place] % (Auto) (3-14) % Eos % (Auto) (2-4) % Baso % (Auto) (0-2) % Neut # (Auto) (0894-7255) /uL Lymph # (Auto) (5987-8182) /uL [place] # (Auto) (0-900) /uL Eos # (Auto) (0-450) /uL Baso # (Auto) (0-100) /uL PT (10.1-12.7) SECONDS INR (0.9-1.3) Sodium 139 (137-145) mmol/L Potassium 3.8 (3.4-5.1) mmol/L Chloride 104 (98-107) mmol/L Carbon Dioxide 27 (22-32) mmol/L BUN 17 (9-20) mg/dL Creatinine 0.82 (0.66-1.25) mg/dL Estimated GFR > 60 (>60) mL/min BUN/Creatinine Ratio 20.7 (6-22) Glucose 92 (80-110) mg/dL Calcium 8.6 (8.4-10.2) mg/dL Total Bilirubin 0.5 (0.2-1.3) mg/dL AST 26 (17-59) IU/L ALT 27 (<50) IU/L Alkaline Phosphatase 70 (38-126) U/L Total Protein 7.1 (6.3-8.2) g/dL Albumin 4.2 (3.5-5.0) g/dL Globulin 2.9 (1.7-4.1) g/dL Albumin/Globulin Ratio 1.4 (1.0-2.8) Urine Color Urine Appearance Urine pH (4.5-8.0) Ur Specific [place] (1.000-1.035) Urine Protein (Negative) Urine Glucose (UA) (Negative) g/dL Urine Ketones (NEGATIVE) Urine Occult Blood (Negative) Urine Nitrate (Negative) Urine Bilirubin (NEGATIVE) Ur Bilirubin Confirm (Negative) Urine Urobilinogen (0.2) E.U./dL Ur Leukocyte Esterase (NEGATIVE) Urine RBC (0-5/HPF) Urine WBC (0-5/HPF) Ur Squamous Epith Cells (0-5/HPF) Urine Bacteria (None) Ur Culture Indicated? History of urine culture from 07/26/2022 posted below SPEC #: [id number] KEELY: 07/26/22 STATUS: COMP REQ #: [id number] SPDESC: RECD: 07/26/22 [facility] DR: Willam Bey SOURCE: Urethra ENTR: 07/26/[address] [facility] [address]: Dorinda Cruz MD FAX TO: ORDERED: URINE CULTURE COMMENTS: No collection time noted; Received time used as collection time. Procedure Result Verified Site Urine Culture Final 07/28/22727 Organism 1 Enterococcus faecalis [place] Count 50,000 - 60,000 CFU/ml Beta Lactamase NEGATIVE 1. Enterococcus faecalis M.I.C. RX --------- --- * Ampicillin <=2 S * Daptomycin 0.5 S * Vancomycin 1 S * Ciprofloxacin 1 S * Gentamicin 500 SYN-S S * Levofloxacin 1 S * Linezolid 2 S * Nitrofurantoin <=16 S * Streptomycin 2000 SYN-S S * Tetracycline >=[address] scan - abdomen/pelvis: Radiologist's Impression: PROCEDURE:? CT ABDOMEN PELVIS WO/W CON ? INDICATIONS:? painless hematuria, large amount, prior TURP ? TECHNIQUE:? After the administration of oral contrast, 5 mm thick sections acquired from the diaphragms to the iliac crests.? After the administration of intravenous contrast, 5 mm thick sections acquired from the diaphragms to the symphysis.? 5 mm thick coronal and sagittal reformats were acquired.? For radiation dose reduction, the following was used:? automated exposure control, adjustment of mA and/or kV according to patient size.? ? COMPARISON:? None. ? FINDINGS: ? Image quality bilateral hip prosthesis obscures multiple images in the pelvis. ? Lower thorax: The lung bases are clear.? Heart size normal.? No hiatal hernia. ? Liver:? Hepatic hypodensities measure up to 3 cm, consistent with cyst ? Biliary system:? No calcified cholelithiasis or pericholecystic inflammation.? No intra or extrahepatic bile duct dilatation. ? Pancreas:? Unremarkable without mass or inflammation evident. ? Spleen:? Normal in size and density. ? Adrenals:? Normal morphology and density. ? Reproductive system:? As below ? Urinary system:? Unremarkable bilateral kidneys without hydronephrosis or renal calculi.? There is bladder wall thickening with increased trabeculation.? Prostate hypertrophy elevates the bladder floor. ? Gastrointestinal system:? The bowel is unremarkable without evidence of bowel obstruction or inflammation. The stomach appears unremarkable. ? Appendix:? No findings to suggest acute appendicitis. ? Peritoneal spaces:? No mesenteric or retroperitoneal adenopathy.? No free air.? No free fluid.? ? Vasculature:? The IVC, aorta and iliac vasculature are unremarkable. ? Abdominal wall:? Abdominal wall intact without evidence of ventral or inguinal hernias. ? Musculoskeletal:? 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 IMPRESSION: ? 1. No evidence of renal calculi or obstructive uropathy. ? 2. Prosthetic hypertrophy and bladder wall thickening ? Approved by: Nolan Dailey M.D. on 02/22/2023 at 10:57? MDM Narrative Medical decision making narrative: Chief Complaint: hematuria Primary historian: patient Multiple etiologies for patient's complaint considered including, but not limited to: Urinary tract infection, malignancy, nephrolithiasis, pyelonephritis, anemia, I have independently reviewed the patient's vital signs and nursing notes as well as prior records if available. My interpretation of imaging: CT IVP not show renal calculi or other hemorrhage, Course of care: Patient is nontender on exam, states that he feels fatigued primarily, without nausea, flank pain to palpation, abdominal pain, fever, chills, or other symptom. He is p.o. tolerant. UA shows many bacteria, nitrates, leukocyte esterase, and blood. No leukocytosis, anemia, CBC only with mild lymphopenia, unremarkable, normal coags, chemistriy is unremarkable. [address] for IVP CT came back positive for bladder wall thickening without acute abnormality otherwise. Patient was given 1 L of normal saline, 750 mg of levofloxacin, he remains asymptomatic and vital signs have been within normal limits. Urine culture is pending, patient will follow-up with Dr. Rojas his urologist as needed. Discussed risks of fluoroquinolones including tendinitis and tendon rupture. Patient states understanding to plan of care and will follow-up with his urologist as needed. He was given 10 days of levofloxacin 750 daily. Social considerations that may affect disposition: none Questions are addressed and there is agreement with the plan and for follow-up. I consulted with the ED attending physician Dr. Hernandes as needed for higher level of care considerations and they were available for discussion and recommendations regarding plan of care and diagnostic testing. Patient is appropriate for outpatient management. <Clint Hernandes, DO - Last Filed: 02/22/23 12:31> Lab Data Labs: Lab Results 02/22/23 02/22/23 02/22/23 Range/Units 10:10 10:25 10:25 WBC 8.9 (4.5-11.0) X10^3/uL RBC 4.93 (4.5-5.9) X10^6/uL Hgb 16.2 (13.5-17.5) g/dL Hct 46.5 (41-53) % MCV 94.5 (80-100) fL MCH 32.9 (26-34) PG MCHC 34.8 (30-36) % RDW 13.1 (11.6-14.8) % Plt Count 237 (150-400) X10^3/uL Neut % (Auto) 67.2 (50-75) % Lymph % (Auto) 21.1 L (25-40) % [place] % (Auto) 8.7 (3-14) % Eos % (Auto) 2.0 (2-4) % Baso % (Auto) 1.0 (0-2) % Neut # (Auto) 6000 (1801-6268) /uL Lymph # (Auto) 1900 (2117-2157) /uL [place] # (Auto) 800 (0-900) /uL Eos # (Auto) 200 (0-450) /uL Baso # (Auto) 100 (0-100) /uL PT 12.8 H (10.1-12.7) SECONDS INR 1.1 (0.9-1.3) Sodium (137-145) mmol/L Potassium (3.4-5.1) mmol/L Chloride (98-107) mmol/L Carbon Dioxide (22-32) mmol/L BUN (9-20) mg/dL Creatinine (0.66-1.25) mg/dL Estimated GFR (>60) mL/min BUN/Creatinine Ratio (6-22) Glucose (80-110) mg/dL Calcium (8.4-10.2) mg/dL Total Bilirubin (0.2-1.3) mg/dL AST (17-59) IU/L ALT (<50) IU/L Alkaline Phosphatase (38-126) U/L Total Protein (6.3-8.2) g/dL Albumin (3.5-5.0) g/dL Globulin (1.7-4.1) g/dL Albumin/Globulin Ratio (1.0-2.8) Urine Color Yellow Urine Appearance Clear Urine pH 5.0 (4.5-8.0) Ur Specific [place] 1.020 (1.000-1.035) Urine Protein 2+ H (Negative) Urine Glucose (UA) Negative (Negative) g/dL Urine Ketones Negative (NEGATIVE) Urine Occult Blood 3+ H (Negative) Urine Nitrate Positive H (Negative) Urine Bilirubin 1+ H (NEGATIVE) Ur Bilirubin Confirm Negative (Negative) Urine Urobilinogen 1.0 (0.2) E.U./dL Ur Leukocyte Esterase Trace H (NEGATIVE) Urine RBC >100/hpf H (0-5/HPF) Urine WBC 30-100/hpf H (0-5/HPF) Ur Squamous Epith Cells None seen (0-5/HPF) Urine Bacteria Many (>30) H (None) Ur Culture Indicated? Specimen cultured 02/22/23 Range/Units 10:25 WBC (4.5-11.0) X10^3/uL RBC (4.5-5.9) X10^6/uL Hgb (13.5-17.5) g/dL Hct (41-53) % MCV (80-100) fL MCH (26-34) PG MCHC (30-36) % RDW (11.6-14.8) % Plt Count (150-400) X10^3/uL Neut % (Auto) (50-75) % Lymph % (Auto) (25-40) % [place] % (Auto) (3-14) % Eos % (Auto) (2-4) % Baso % (Auto) (0-2) % Neut # (Auto) (3615-2324) /uL Lymph # (Auto) (8906-2112) /uL [place] # (Auto) (0-900) /uL Eos # (Auto) (0-450) /uL Baso # (Auto) (0-100) /uL PT (10.1-12.7) SECONDS INR (0.9-1.3) Sodium 139 (137-145) mmol/L Potassium 3.8 (3.4-5.1) mmol/L Chloride 104 (98-107) mmol/L Carbon Dioxide 27 (22-32) mmol/L BUN 17 (9-20) mg/dL Creatinine 0.82 (0.66-1.25) mg/dL Estimated GFR > 60 (>60) mL/min BUN/Creatinine Ratio 20.7 (6-22) Glucose 92 (80-110) mg/dL Calcium 8.6 (8.4-10.2) mg/dL Total Bilirubin 0.5 (0.2-1.3) mg/dL AST 26 (17-59) IU/L ALT 27 (<50) IU/L Alkaline Phosphatase 70 (38-126) U/L Total Protein 7.1 (6.3-8.2) g/dL Albumin 4.2 (3.5-5.0) g/dL Globulin 2.9 (1.7-4.1) g/dL Albumin/Globulin Ratio 1.4 (1.0-2.8) Urine Color Urine Appearance Urine pH (4.5-8.0) Ur Specific [place] (1.000-1.035) Urine Protein (Negative) Urine Glucose (UA) (Negative) g/dL Urine Ketones (NEGATIVE) Urine Occult Blood (Negative) Urine Nitrate (Negative) Urine Bilirubin (NEGATIVE) Ur Bilirubin Confirm (Negative) Urine Urobilinogen (0.2) E.U./dL Ur Leukocyte Esterase (NEGATIVE) Urine RBC (0-5/HPF) Urine WBC (0-5/HPF) Ur Squamous Epith Cells (0-5/HPF) Urine Bacteria (None) Ur Culture Indicated? Discharge Plan Departure Patient Disposition: Home Clinical Impression: History of transurethral resection of prostate Urinary tract infection Qualifiers: Urinary tract infection type: acute cystitis Hematuria presence: with hematuria Qualified Code(s): N30.01 - Acute cystitis with hematuria Hematuria Qualifiers: Hematuria type: gross Qualified Code(s): R31.0 - Gross hematuria Instructions: Urinary Tract Infection, Blood in Urine Activity Restrictions/Additional Instructions: *You have been diagnosed with a urinary tract infection and hematuria without other concerning findings today. The antibiotic your taking is a fluoroquinolone which can be associated with increased risk of tendinitis and tendon rupture. Please avoid strenuous activity and you should stop taking this medication if you develop tendon pain, swelling, or inflammation. Please stay hydrated, take your medication with food once a day for 10 days and schedule follow-up with Dr. Rojas. I have forwarded your chart to him. The CT that you had does not show any concerning masses or bleeding, it shows the bladder wall is thickened due to inflammation and likely infection but nothing concerning in your kidneys. You have an enlarged prostate no evidence of acute problems. There are degenerative changes in your spine which likely cause you occasional back pain but nothing concerning for emergency. Thank you for sharing your talented work with our team. I will be following your blog, I would love to have some of your photos in my home. *What to do: *Please continue to take your regular medications as directed. [ x] New medication prescriptions sent to your pharmacy: [ [facility]] [ ] New medication written as a paper prescription [ ] No new medications given *Please call and schedule follow up with your primary care provider in 2-3 days, at least for an update. Let them know you were seen in the Emergency Department for the above problem. We will electronically transmit a record of today's note if your PCP or specialist is in our system. *If you do not have a primary care provider please contact [phone] to establish care with one of the [facility] primary care providers. *Return to the Emergency Department for worsening symptoms, inability to keep liquids down, fever greater than 101F, chills, or other concerning symptom. Prescriptions: New levofloxacin 750 mg tablet 750 mg PO DAILY 10 Days Qty: 10 0RF No Action ciprofloxacin HCl 500 mg tablet 500 mg PO BID Qty: 12 0RF atorvastatin 10 mg tablet 10 mg PO DAILY sildenafil 100 mg Tablet 100 mg PO DAILY PRN (Reason: Sexual Activity) terazosin 10 mg capsule 10 mg PO DAILY Referrals: Micky Rojas DO [Non-Staff] - Katerine Dimas ARNP [Primary Care Provider] - Stand Alone Forms: Patient Portal/API <Clint Hernandes DO - Last Filed: 02/22/23 12:31> Cosign ED Attending Coscristoature Attestation: I was immediately available in the department for consultation. Documentation has been reviewed. I agree with assessment and plan.
[2023-02-22 10:34] LABS: Add Manual Diff / Slide Review NO; Basophils Absolute Auto 100 /uL (0-100); Eosinophils Absolute Auto 200 /uL (0-450); Hematocrit 46.5 % (41-53); Hemoglobin 16.2 g/dL (13.5-17.5); Lymphocytes Absolute Auto 1900 /uL (1100-4500); Lymphocytes Percent Auto 21.1 % (25-40); Mean Corpuscular HGB Conc 34.8 % (30-36); Mean Corpuscular Hemoglobin 32.9 PG (26-34); Mean Corpuscular Volume 94.5 fL (80-100); Monocytes Absolute Auto 800 /uL (0-900); Monocytes Percent Auto 8.7 % (3-14); Neutrophils Absolute Auto 6000 /uL (1500-7000); Neutrophils Percent Auto 67.2 % (50-75); Platelet Count 237 X10^3/uL (150-400); Red Blood Cell Count 4.93 X10^6/uL (4.5-5.9); Red Cell Distribution Width 13.1 % (11.6-14.8); White Blood Cell Count 8.9 X10^3/uL (4.5-11.0)
[2023-02-22 10:40] LABS: INR 1.1 (0.9-1.3); Prothrombin Time 12.8 SECONDS (10.1-12.7)
[2023-02-22 10:45] LABS: Alanine Aminotransferase 27 IU/L (<50); Albumin 4.2 g/dL (3.5-5.0); Albumin Globulin Ratio 1.4 (1.0-2.8); Alkaline Phosphatase 70 U/L (38-126); Aspartate Aminotransferase 26 IU/L (17-59); BUN Creatinine Ratio 20.7 (6-22); Bilirubin Total 0.5 mg/dL (0.2-1.3); Blood Urea Nitrogen 17 mg/dL (9-20); Calcium 8.6 mg/dL (8.4-10.2); Carbon Dioxide 27 mmol/L (22-32); Chloride 104 mmol/L (98-107); Estimated Glomerular Filt Rate > 60 mL/min (>60); Globulin 2.9 g/dL (1.7-4.1); Glucose 92 mg/dL (80-110); HEMOLYSIS < 15 (0-50); Potassium 3.8 mmol/L (3.4-5.1); Sodium 139 mmol/L (137-145); Total Protein 7.1 g/dL (6.3-8.2)
--- NOTE | 2023-02-22 10:52 | PC.NURSE ---
Patient arrives today stating that he has a history of having a TURP two years ago. Patient states that they have had no complications since the healing from the procedure. Patient woke up this morning and urinated like normal and noted that his urine was red without complaints of pain or any other concerns beyond noting the red urine. Patient denies having urological symptoms.
[2023-02-22] MEDS: SODIUM CHLORIDE 0.9% 1,000 ML 1000 ML IV (11:02)
[2023-02-22] MEDS: levoFLOXacin 250 MG TABLET 750 MG PO (11:03)
[2023-02-22 11:28] VITALS: PULSE 73; O2SAT 97
[2023-02-22 11:29] VITALS: BP 162/84; PULSE 73; O2SAT 97
== END 2023-02-22 12:07 | disposition home or self-care (01) ==
PROVIDERS: Emergency Medicine; Emergency Provider Nurse Practitioner Critical Care Medicine; PCP Internal Medicine
DX: N30.01 Acute cystitis with hematuria (principal)
CPT/HCPCS: 36415; 74178; 80053; 81001; 85025; 85610; 87040; 87077; 87086; 87186; 99284

== ENCOUNTER → 2023-04-22 15:26 | Outpatient (CLI) | payer OTHER, SELFPAY ==
--- NOTE | 2023-04-22 15:29 | DI.RAD.S_ITS ---
PROCEDURE: XR HIP W PEL IF DONE RT 2V INDICATIONS: Polyosteoarthritis, unspecified TECHNIQUE: AP pelvis with lateral view(s) of the right hip(s). COMPARISON: None. FINDINGS: Bones: Patient is status post bilateral total hip arthroplasty. Right hip alignment is anatomic. No evidence of hardware loosening or failure. No periprosthetic fracture or dislocation . Pelvic ring appears intact. No suspicious bony lesions. Soft tissues: The visualized bowel gas pattern is normal. No suspicious soft tissue calcifications. IMPRESSION: Prior bilateral total hip arthroplasty. Anatomic right hip alignment. No periprosthetic fracture. No gross hardware loosening or failure. Dictated by: Colin Larios M.D. on 04/22/2023 at 16:15 Approved by: Colin Larios M.D. on 04/22/2023 at 16:16
--- NOTE | 2023-04-22 15:29 | DI.RAD.S_ITS ---
PROCEDURE: XR KNEE LT 3V INDICATIONS: Polyosteoarthritis, unspecified TECHNIQUE: 3 views of the knee were acquired. COMPARISON: None. FINDINGS: Bones: No fractures or dislocations. Moderate to severe tricompartmental osteoarthritis is seen. No patellar subluxation. No suspicious bony lesions. Soft tissues: No significant joint effusion. No suspicious soft tissue calcifications. IMPRESSION: Moderate to severe tricompartmental osteoarthritis. No fracture or dislocation. No significant joint effusion. Dictated by: Colin Larios M.D. on 04/22/2023 at 16:16 Approved by: Colin Larios M.D. on 04/22/2023 at 16:16
== END ==
PROVIDERS: PCP Internal Medicine; Referring Provider Internal Medicine; Visit Provider Internal Medicine
DX: Z96.643 Presence of artificial hip joint, bilateral (principal); M15.9 Polyosteoarthritis, unspecified
CPT/HCPCS: 73502; 73562

== ENCOUNTER → 2023-06-27 12:10 | Outpatient (CLI) | payer OTHER, SELFPAY ==
--- NOTE | 2023-06-27 | DI.CT.S_ITS ---
PROCEDURE: CT MASTOID TEMPORAL INDICATIONS: LEFT CENTRAL YAZIDI MASS COMPARISON: None. TECHNIQUE: Noncontrast 0.6 mm thick axial sections acquired through each temporal bone separately. Coronal images are reformatted. FINDINGS: RIGHT: External auditory canal: Debris in the external auditory canal can be correlated with direct visualization Middle ear: The middle ear structures, including the ossicles and tympanic membrane, appear normal. No abnormal fluid or soft tissue density. Inner ear: Inner ear is normally formed and appears unremarkable. Facial nerve appears normal throughout is course. Mastoids: Mastoid air cells are clear. LEFT: External auditory canal: Debris within left external auditory canal can be correlated with direct visualization Middle ear: The middle ear structures, including the ossicles and tympanic membrane, appear normal. No abnormal fluid or soft tissue density. Inner ear: Inner ear is normally formed and appears unremarkable. Facial nerve appears normal throughout its course. Mastoids: Mastoid air cells are clear. MISCELLANEOUS: In the left preauricular subcutaneous tissue, there is a densely enhancing ovoid mass lesion measuring 2.8 x 1.8 x 3.0 cm. Large veins noted associated at either pole of the mass. No underlying osseous erosion or involvement. IMPRESSION: Densely enhancing left temporal subcutaneous mass lesion. Given the associated large veins probably feeding the mass, primary differential would be large venous varix. Advise follow-up ultrasound evaluation prior to biopsy Approved by: Nolan Dailey M.D. on 06/27/2023 at 15:55
[2023-06-27 12:59] LABS: Estimated Glomerular Filt Rate > 60 mL/min (>60)
[2023-07-01 16:19] LABS: Prostate Specific Antigen Scrn 3.65 ng/mL (0.1-4.0)
== END ==
PROVIDERS: Radiology Diagnostic Radiology; PCP Internal Medicine; Referring Provider Urology; Visit Provider Dermatology
DX: D48.5 Neoplasm of uncertain behavior of skin (principal); R39.9 Unspecified symptoms and signs involving the genitourinary system
CPT/HCPCS: 36415; 70480; 82565; G0103; Q9967

== ENCOUNTER → 2024-03-17 07:56 | Outpatient (CLI) | payer OTHER, SELFPAY ==
--- NOTE | 2024-03-17 | DI.NM.S_ITS ---
PROCEDURE: NM EXERCISE TREADMILL NON NUC COMPARISON: None INDICATIONS: Atherosclerotic heart disease FINDINGS: Rest ECG sinus rhythm 72 bpm. Jose protocol 4:10, maximum heart rate 144 bpm (113% peak predicted), maximum blood pressure 150/90, 5.1 METS, KENISHA +33%. Exercise ECG sinus tachycardia, no ST segment changes. Occasional PVCs noted. The patient did not complain of exercise-induced chest discomfort but did have moderate shortness of breath and hip pain. IMPRESSION: Low risk study for ischemia. No evidence of exercise-induced ST segment changes. Occasional PVCs noted. Accelerated heart rate response. Normal blood pressure response. Reduced exercise capacity. Dictated by: Keturah Chauhan D.O. on 03/17/2024 at 11:35 Approved by: Keturah Chauhan D.O. on 03/17/2024 at 11:39
--- NOTE | 2024-03-17 | DI.ECHO.S_ITS ---
[place] [facility] : : [address] : : [place] : : [id number] : : Phone: [phone] Echocardiogram Report + + :Name: CARO NAVARRO Study Date: 03/17/2024 Height: 71 in : :[facility] ReadingLocation: Weight: 255 lb : : Gender: Male BSA: 2.3 m2 : :: 1955 Age: 68 yrs BP: 131/85 mmHg: :Reason For Study: ATHEROSCLEROTIC HEART DISEASE : :Ordering Physician: MELY LARIOS Performed By: May Mcleod : :Referring: MELY LARIOS : + + Interpretation Summary 1. The left ventricle contractility is normal. Estimated ejection fraction is greater than 55% with no segmental wall motion abnormalities. No LVH is noted. Normal diastolic function present. 2. The right ventricular contractility is normal. 3. All cardiac chambers are normal size. 4. No significant valvular abnormalities noted. 5. No obvious intracardiac shunts noted. 6. No obvious intracardiac masses nor thrombi appreciated. 7. No hemodynamically significant pericardial effusion present. 8. The ascending aorta is mildly dilated without obvious dissection. Conclusion: Normal biventricular function with with no significant structural abnormalities. Procedure: A two-dimensional transthoracic echocardiogram with color flow and Doppler was performed. The study quality was technically difficult. A contrast injection of Definity was performed to improve assessment of LV function. There is no prior echocardiogram noted for this patient. The patient was in sinus rhythm with heart rates between 66-75 bpm during the exam. Left Ventricle: The left ventricle is normal in size and wall thickness. The ejection fraction is estimated to be 60-65%. Right Ventricle: The right ventricle is normal in size and function. Atria: The left atrial size is normal. Right atrial size is normal. There is no Doppler evidence for an interatrial shunt. Mitral Valve: The mitral valve is normal in structure and function. There is trace mitral regurgitation. Aortic Valve: The aortic valve is trileaflet. The aortic valve opens well. There is no aortic valve stenosis. No aortic regurgitation is present. Tricuspid Valve: The tricuspid valve is normal in structure and function. There is trace tricuspid regurgitation. Pulmonic Valve: The pulmonic valve is not well visualized. There is no pulmonic valvular regurgitation. Great Vessels: The aortic root is normal size. The ascending aorta is mildly enlarged. The IVC is of normal diameter and collapses greater than 50% with a sniff. This suggests a low right atrial pressure of 3 mm Hg. Pericardium/ Pleura There is no pericardial effusion. There is no pleural effusion. MMode/2D Measurements & Calculations LVIDd: 4.7 cm LVOT diam: 2.5 cm LVIDs: 3.5 cm Ao root diam: 3.6 cm FS: 26.3 % asc Aorta Diam: 4.1 cm IVSd: 0.62 cm Ao Arch Diam (Prox Trans): 2.9 cm LVPWd: 0.98 cm LV oseguera. diameter/BSA (cm/m^2): 2.0 LV sys. diameter/BSA (cm/m^2): 1.5 LA A2 area: 23.4 cm2 RA long axis: 5.2 cm LA A4 area: 17.2 cm2 RA area: 14.8 cm2 LA length (vol): 5.6 cm RA vol: 36.0 ml LA vol: 61.2 ml RA : 15.4 ml/m2 LA vol index: 26.2 ml/m2 IVC diam: 1.1 cm RVD1 (basal): 3.2 cm TAPSE: 1.8 cm Doppler Measurements & Calculations Ao V2 max: 130.2 cm/sec LVOT Max Shayan: 90.7 cm/sec Ao V2 mean: 99.1 cm/sec LV V1 max P.3 mmHg Ao max P.8 mmHg LV V1 VTI: 18.0 cm Ao mean P.2 mmHg NANCY(I,D): 2.9 cm2 Ao V2 VTI: 30.2 cm NANCY(V,D): 3.4 cm2 sev ratio: 0.60 NANCY indexed to BSA (cm^2/m^2): 1.3 MV E max shayan: 69.1 cm/sec PA V2 max: 56.0 cm/sec MV A max shayan: 69.8 cm/sec PA V2 mean: 40.3 cm/sec MV E/A: 0.99 PA mean P.71 mmHg Med Peak E' Shayan: 8.5 cm/sec PA pr(Accel): 41.3 mmHg E/E' med: 8.2 Lat Peak E' Shayan: 10.5 cm/sec E/E' lat: 6.6 E/e' average: 7.4 MV dec time: 0.24 sec SV(LVOT): 88.9 ml Reading Physician:
== END ==
PROVIDERS: PCP Internal Medicine; Referring Provider Internal Medicine; Visit Provider Internal Medicine
DX: I25.118 Atherosclerotic heart disease of native coronary artery with other forms of angina pectoris (principal); I77.89 Other specified disorders of arteries and arterioles
CPT/HCPCS: 93017; 93306; Q9957

== ENCOUNTER → 2024-07-30 10:03 | Outpatient (CLI) | payer OTHER, SELFPAY ==
[2024-07-30 11:11] LABS: Hemoglobin A1C% w Est Avg Glu 5.1 % (4.0-6.0)
[2024-07-30 11:34] LABS: Prealbumin 26.8 mg/dL (17.6-36.0)
[2024-07-30 12:02] LABS: Vitamin D 25 Hydroxy (D3) 49.3 ng/mL (30.0-100.0)
== END ==
LOC: LAB 10:04
PROVIDERS: PCP Internal Medicine; Referring Provider Orthopaedic Surgery Adult Reconstructive Orthopaedic Surgery; Visit Provider Orthopaedic Surgery Adult Reconstructive Orthopaedic Surgery
DX: R73.9 Hyperglycemia, unspecified (principal); E55.9 Vitamin D deficiency, unspecified; R77.0 Abnormality of albumin
CPT/HCPCS: 36415; 82040; 82306; 83036; 84134

== ENCOUNTER 2024-10-16 15:18 | Emergency (ER) | payer OTHER, SELFPAY ==
[2024-10-16 15:31] VITALS: BP 145/90; PULSE 85; RESP 18; TEMP 36.4; O2SAT 98; BMI 35.5
--- NOTE | 2024-10-16 16:08 | DI.CT.S_ITS ---
PROCEDURE: CT IVP A/P W/WO INDICATIONS: gross hematuria; left low back pain; hx TURP TECHNIQUE: Optional 5 mm thick noncontrast images acquired from the diaphragm to the symphysis pubis. After the administration of intravenous contrast, 5 mm thick images acquired from the diaphragm to the symphysis pubis after a 10-minute delay. 2 mm thick coronal and sagittal reformats were then performed of the kidneys and ureters. For radiation dose reduction, the following was used: automated exposure control, adjustment of mA and/or kV according to patient size. COMPARISON: None. FINDINGS: Image quality: Diagnostic. Kidneys and Ureters: Both kidneys are normal in size, without hydronephrosis or nephrolithiasis. No perinephric fat stranding. There is normal bilateral renal enhancement. Renal calyces appear normal in morphology when filled with contrast. Opacified portions of both ureters demonstrate normal caliber Bladder: Bladder wall thickness is normal. No calcified bladder stones. OTHER: Lower chest: Unremarkable. Liver: No solid mass. Gallbladder: No radiopaque gallstones or wall thickening. Biliary ducts: No biliary dilation. Pancreas: No ductal dilation. Spleen: Size is within normal limits. Adrenal Glands: No adrenal nodules. Stomach and Bowel: Normal colonic caliber, without significant wall thickening. Peritoneum: No abnormal intraperitoneal fluid. No free air. Ventral Wall: Right spigelian hernia contains fat without bowel involvement Abdominal Nodes: No retroperitoneal or mesenteric adenopathy by size criteria. Vessels: Aorta and inferior vena cava are normal in size. PELVIS: Pelvic Organs: Unremarkable. Pelvic Nodes: No enlarged lymph nodes. Miscellaneous: No inguinal hernias are seen. 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 Bilateral hip prosthesis IMPRESSION: No nephrolithiasis or filling defects within the opacified renal collecting system or ureters. . No hydronephrosis. Hypertrophic prostate and bladder wall thickening consistent with chronic bladder outlet obstruction. Approved by: Nolan Dailey M.D. on 10/16/2024 at 17:21
--- NOTE | 2024-10-16 16:10 | ED.MALEGU ---
HPI - Male Genitourinary <Kathrine Saenz PA-C - Last Filed: 10/16/24 19:51> General Chief complaint: Urogenital-Male Stated complaint: urinary problem Time Seen by Provider: 10/16/24 15:55 Source: patient Mode of arrival: Ambulatory History of Present Illness HPI Narrative: Mr. Cruz is a very pleasant 69-year-old male with a past medical history of TURP in 2019, left knee replacement 7 weeks ago, UTIs, not anticoagulated who presents to the emergency department for gross hematuria that occurred prior to arrival. Patient states that he was at the gym and when he went to the bathroom he urinated dark blood, the color of merlot. He is urinated twice since then, pink/red tinged urine and then clear yellow urine. Reports that he has had hematuria in the past associated with urinary tract infections. He has been having some left-sided low back pain since yesterday. He has not having any burning with urination or increased frequency however he reports that he does go to the bathroom very frequently anyway because of his history of prostate problems. He is feeling more fatigued. He denies fevers, chills, abdominal pain, nausea, vomiting, diarrhea, constipation, melena, hematochezia. His urologist is Dr. Rojas. Related Data Home Medications Medication Instructions Recorded Confirmed atorvastatin 10 mg tablet 10 mg PO DAILY 07/13/21 07/13/21 sildenafil 100 mg tablet 100 mg PO DAILY PRN Sexual Activity 07/13/21 07/13/21 terazosin 10 mg capsule 10 mg PO DAILY 07/13/21 07/13/21 Previous Rx's Medication Instructions Recorded ciprofloxacin HCl 500 mg tablet 500 mg PO BID #12 tabs 07/29/22 cefuroxime axetil 500 mg tablet 500 mg PO BID 7 days #14 tabs 10/16/24 Allergies Allergy/AdvReac Type Severity Reaction Status Date / Time Sulfa (Sulfonamide Allergy Verified 05/18/23 14:26 Antibiotics) Review of Systems <Kathrine Saenz PA-C - Last Filed: 10/16/24 19:51> Review of Systems ROS Unobtainable: All systems reviewed & are unremarkable except as noted in HPI and below Patient History <Kathrine Saenz PA-C - Last Filed: 10/16/24 19:51> Social History household members: spouse Smoking Status: Never smoker alcohol intake: current Smoking Status: Never smoker alcohol intake frequency: 0-2 drinks per day Exam <Kathrine Saenz PA-C - Last Filed: 10/16/24 19:51> Narrative Exam Narrative: GENERAL: 69 year old patient appears stated age. Well-developed patient, in no acute distress. HEAD: Atraumatic. Normocephalic. NECK: Trachea midline. Cervical ROM intact. CARDIOVASCULAR: Regular rate and rhythm. RESPIRATORY: ?Nonlabored respirations. ?Speaking in clear, full sentences. ?Clear to auscultation.? GASTROINTESTINAL: Abdomen soft, non-tender, nondistended. Normal bowel sounds. EXTREMITIES: No edema or joint tenderness. BACK: No CVA tenderness. Subjective pain in the left lumbar paraspinal region with no reproducible tenderness. NEURO: AOx3. ?Clear speech. ?Moves all 4 extremities appropriately. SKIN: No rash or erythema of visible areas Initial Vital Signs Initial Vital Signs: Vital Signs Temperature 97.6 F 10/16/24 15:31 Pulse Rate 85 10/16/24 15:31 Respiratory Rate 18 10/16/24 15:31 Blood Pressure 145/90 H 10/16/24 15:31 Pulse Oximetry 98 10/16/24 15:31 Oxygen Delivery Method Room Air 10/16/24 15:31 <Angie Mariscal MD - Last Filed: 10/16/24 20:23> Initial Vital Signs Initial Vital Signs: Vital Signs Temperature 97.6 F 10/16/24 15:31 Pulse Rate 85 10/16/24 15:31 Respiratory Rate 18 10/16/24 15:31 Blood Pressure 145/90 H 10/16/24 15:31 Pulse Oximetry 98 10/16/24 15:31 Oxygen Delivery Method Room Air 10/16/24 15:31 Course <Kathrine Saenz PA-C - Last Filed: 10/16/24 19:51> Orders Ordered: ED Orders 10/16/24 16:06 Urine Culture Stat Urine Microscopic Stat 10/16/24 16:08 CT IVP A/P W/WO Stat 10/16/24 16:35 Complete Blood Count AUTO DIFF Stat Comprehensive Metabolic Panel Stat Lipase Stat PT [Prothrombin Time INR] Stat PTT [PTT Partial Thromboplastin Larry] Stat Discontinued Medications Sodium Chloride (Normal Saline 0.9%) 1,000 mls @ 500 mls/hr IV BOLUS ONE Stop: 10/16/24 18:08 Last Infusion: 10/16/24 19:24 Dose: Infused Documented By: Admin: 10/16/24 16:41 Dose: 500 mls/hr Documented By: CARINA Ceftriaxone Sodium 2,000 mg/ (Sodium Chloride) 100 mls @ 200 mls/hr IV NOW ONE Stop: 10/16/24 19:07 Last Infusion: 10/16/24 19:50 Dose: Infused Documented By: Admin: 10/16/24 19:20 Dose: 200 mls/hr Documented By: CARINA Vital Signs Vital signs: Vital Signs - 8 hr 10/16/24 15:31 10/16/24 20:00 Temperature 97.6 F Pulse Rate 85 72 Respiratory Rate 18 18 Blood Pressure 145/90 H 139/78 Pulse Oximetry 98 99 Oxygen Delivery Method Room Air Room Air <Angie Mariscal MD - Last Filed: 10/16/24 20:23> Orders Ordered: ED Orders 10/16/24 16:06 Urine Culture Stat Urine Microscopic Stat 10/16/24 16:08 CT IVP A/P W/WO Stat 10/16/24 16:35 Complete Blood Count AUTO DIFF Stat Comprehensive Metabolic Panel Stat Lipase Stat PT [Prothrombin Time INR] Stat PTT [PTT Partial Thromboplastin Larry] Stat Discontinued Medications Sodium Chloride (Normal Saline 0.9%) 1,000 mls @ 500 mls/hr IV BOLUS ONE Stop: 10/16/24 18:08 Last Infusion: 10/16/24 19:24 Dose: Infused Documented By: Admin: 10/16/24 16:41 Dose: 500 mls/hr Documented By: CARINA Ceftriaxone Sodium 2,000 mg/ (Sodium Chloride) 100 mls @ 200 mls/hr IV NOW ONE Stop: 10/16/24 19:07 Last Infusion: 10/16/24 19:50 Dose: Infused Documented By: Admin: 10/16/24 19:20 Dose: 200 mls/hr Documented By: CARINA Vital Signs Vital signs: Vital Signs - 8 hr 10/16/24 15:31 10/16/24 20:00 Temperature 97.6 F Pulse Rate 85 72 Respiratory Rate 18 18 Blood Pressure 145/90 H 139/78 Pulse Oximetry 98 99 Oxygen Delivery Method Room Air Room Air MDM - Male Genitourinary <Kathrine Saenz PA-C - Last Filed: 10/16/24 19:51> Medical Records Attestation: I reviewed the patient's medical records. Medical records narrative: 03/17/2020 ED visit for urinary retention 03/22/2020 ED visit for Malfunction of wade catheter 03/25/2020 ED visit for malfunction of wade catheter 02/22/23 ED visit for Hematuria, UTI. Urine culture grew E. coli not resistant to any abx Lab Data 10/16/24 16:35 10/16/24 16:35 Labs: Lab Results 10/16/24 10/16/24 Range/Units 16:06 16:35 WBC 9.2 (4.5-11.0) X10^3/uL RBC 4.62 (4.5-5.9) X10^6/uL Hgb 15.1 (13.5-17.5) g/dL Hct 44.5 (41-53) % MCV 96.3 (80-100) fL MCH 32.7 (26-34) PG MCHC 34.0 (30-36) % RDW 13.8 (11.6-14.8) % Plt Count 292 (150-400) X10^3/uL Neut % (Auto) 73.8 (50-75) % Lymph % (Auto) 15.8 L (25-40) % [place]uthrie % (Auto) 6.8 (3-14) % Eos % (Auto) 2.7 (2-4) % Baso % (Auto) 0.9 (0-2) % Neut # (Auto) 6800 (8969-0078) /uL Lymph # (Auto) 1500 (0531-7107) /uL [place] # (Auto) 600 (0-900) /uL Eos # (Auto) 300 (0-450) /uL Baso # (Auto) 100 (0-100) /uL PT 11.9 (9.4-12.5) SECONDS INR 1.1 (0.9-1.3) APTT 32 (25.1-36.5) SECONDS Sodium 137 (137-145) mmol/L Potassium 4.1 (3.4-5.1) mmol/L Chloride 105 (98-107) mmol/L Carbon Dioxide 24 (22-32) mmol/L BUN 21 H (9-20) mg/dL Creatinine 0.85 (0.66-1.25) mg/dL Estimated GFR > 60 (>60) mL/min BUN/Creatinine Ratio 24.7 H (6-22) Glucose 96 (80-110) mg/dL Calcium 8.9 (8.4-10.2) mg/dL Total Bilirubin 0.7 (0.2-1.3) mg/dL AST 28 (17-59) IU/L ALT 27 (<50) IU/L Alkaline Phosphatase 87 (38-126) U/L Total Protein 7.1 (6.3-8.2) g/dL Albumin 4.3 (3.5-5.0) g/dL Globulin 2.8 (1.7-4.1) g/dL Albumin/Globulin Ratio 1.5 (1.0-2.8) Lipase 88 (23-300) U/L Urine RBC 30-100/hpf H (0-5/HPF) Urine WBC 1-5/hpf (0-5/HPF) Ur Squamous Epith Cells None seen (0-5/HPF) Urine Bacteria Moderate (10-30) H (None) Ur Culture Indicated? Specimen cultured Vol Urine Centrifuged 10ml (spun) Urine Dip Bedside Urine Glucose Negative Bedside Urine Bilirubin - Negative Bedside Urine Ketone - Negative Urine Specific [place] 1.010 Bedside Urine Occult Blood +++ Bedside Urine pH 6.0 Bedside Urine Protein + 30 Bedside Urine Urobilinogen - Negative Bedside Urine Nitrite - Negative Bedside Urine Leukocytes +/- [address] scan - abdomen/pelvis: Radiologist's Impression: PROCEDURE: CT IVP A/P W/WO INDICATIONS: gross hematuria; left low back pain; hx TURP TECHNIQUE: Optional 5 mm thick noncontrast images acquired from the diaphragm to the symphysis pubis. After the administration of intravenous contrast, 5 mm thick images acquired from the diaphragm to the symphysis pubis after a 10-minute delay. 2 mm thick coronal and sagittal reformats were then performed of the kidneys and ureters. For radiation dose reduction, the following was used: automated exposure control, adjustment of mA and/or kV according to patient size. COMPARISON: None. FINDINGS: Image quality: Diagnostic. Kidneys and Ureters: Both kidneys are normal in size, without hydronephrosis or nephrolithiasis. No perinephric fat stranding. There is normal bilateral renal enhancement. Renal calyces appear normal in morphology when filled with contrast. Opacified portions of both ureters demonstrate normal caliber Bladder: Bladder wall thickness is normal. No calcified bladder stones. OTHER: Lower chest: Unremarkable. Liver: No solid mass. Gallbladder: No radiopaque gallstones or wall thickening. Biliary ducts: No biliary dilation. Pancreas: No ductal dilation. Spleen: Size is within normal limits. Adrenal Glands: No adrenal nodules. Stomach and Bowel: Normal colonic caliber, without significant wall thickening. Peritoneum: No abnormal intraperitoneal fluid. No free air. Ventral Wall: Right spigelian hernia contains fat without bowel involvement Abdominal Nodes: No retroperitoneal or mesenteric adenopathy by size criteria. Vessels: Aorta and inferior vena cava are normal in size. PELVIS: Pelvic Organs: Unremarkable. Pelvic Nodes: No enlarged lymph nodes. Miscellaneous: No inguinal hernias are seen. 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 Bilateral hip prosthesis IMPRESSION: No nephrolithiasis or filling defects within the opacified renal collecting system or ureters. . No hydronephrosis. Hypertrophic prostate and bladder wall thickening consistent with chronic bladder outlet obstruction. [facility] Narrative Medical decision making narrative: 69-year-old male with a past medical history of TURP in 2019, left knee replacement 7 weeks ago, UTIs, not anticoagulated who presents to the emergency department for gross hematuria that occurred prior to arrival. Differential diagnosis includes but is not limited to urinary tract infection, cystitis, nephrolithiasis, ureterolithiasis, pyelonephritis, malignancy, etc. On exam the patient is in no acute distress, nontoxic appearing, vital signs appropriate, abdomen soft and nontender, no CVA tenderness. Does have subjective left low back pain. Urine sample in the ED is blood-tinged with no clots. To the history of UTIs, left low back pain, hematuria we will proceed with CT hematuria protocol to evaluate possible intra-abdominal pathology check CBC, CMP, coags, treat with IV fluids. Urinalysis obtained in triage. Point of care UA reveals leuks, protein, blood, urine culture reveals 30-100 RBCs, moderate urine bacteria. Urine was cultured. Labs reveal normal WBC count 9.2 hemoglobin 15.1 hematocrit 44.5. Lymphocytes are slightly low at 15.8, I did discuss this with patient recommended monitoring with PCP. Normal sodium 137, potassium 4.1, BUN 21, creatinine 0.85. Normal LFTs. Lipase normal 88. CT IVP reveals no nephrolithiasis or filling defects within the opacified renal collecting system and ureters. No hydronephrosis. There is hypertrophic prostate and bladder wall thickening consistent with chronic bladder outlet obstruction. We will treat UTI with hematuria with 2 g IV Rocephin in the ED (for weight >100kg). We will prescribe cefuroxime 500 mg p.o. b.i.d. x7 days, urine culture pending. Discussed strict ED return precautions with the patient and advised follow up with Urology for further evaluation of chronic bladder outlet obstruction/hypertrophic prostate. He was provided with a printed copy of his CT scan report and report will be faxed to Dr. Rojas or we will give him a disc. Patient verbalized understanding of all information is agreeable with the plan. He is stable for discharge home. <Angie Mariscal MD - Last Filed: 10/16/24 20:23> Lab Data Labs: Lab Results 10/16/24 10/16/24 Range/Units 16:06 16:35 WBC 9.2 (4.5-11.0) X10^3/uL RBC 4.62 (4.5-5.9) X10^6/uL Hgb 15.1 (13.5-17.5) g/dL Hct 44.5 (41-53) % MCV 96.3 (80-100) fL MCH 32.7 (26-34) PG MCHC 34.0 (30-36) % RDW 13.8 (11.6-14.8) % Plt Count 292 (150-400) X10^3/uL Neut % (Auto) 73.8 (50-75) % Lymph % (Auto) 15.8 L (25-40) % [place]rie % (Auto) 6.8 (3-14) % Eos % (Auto) 2.7 (2-4) % Baso % (Auto) 0.9 (0-2) % Neut # (Auto) 6800 (7070-6689) /uL Lymph # (Auto) 1500 (0822-7181) /uL [place] # (Auto) 600 (0-900) /uL Eos # (Auto) 300 (0-450) /uL Baso # (Auto) 100 (0-100) /uL PT 11.9 (9.4-12.5) SECONDS INR 1.1 (0.9-1.3) APTT 32 (25.1-36.5) SECONDS Sodium 137 (137-145) mmol/L Potassium 4.1 (3.4-5.1) mmol/L Chloride 105 (98-107) mmol/L Carbon Dioxide 24 (22-32) mmol/L BUN 21 H (9-20) mg/dL Creatinine 0.85 (0.66-1.25) mg/dL Estimated GFR > 60 (>60) mL/min BUN/Creatinine Ratio 24.7 H (6-22) Glucose 96 (80-110) mg/dL Calcium 8.9 (8.4-10.2) mg/dL Total Bilirubin 0.7 (0.2-1.3) mg/dL AST 28 (17-59) IU/L ALT 27 (<50) IU/L Alkaline Phosphatase 87 (38-126) U/L Total Protein 7.1 (6.3-8.2) g/dL Albumin 4.3 (3.5-5.0) g/dL Globulin 2.8 (1.7-4.1) g/dL Albumin/Globulin Ratio 1.5 (1.0-2.8) Lipase 88 (23-300) U/L Urine RBC 30-100/hpf H (0-5/HPF) Urine WBC 1-5/hpf (0-5/HPF) Ur Squamous Epith Cells None seen (0-5/HPF) Urine Bacteria Moderate (10-30) H (None) Ur Culture Indicated? Specimen cultured Vol Urine Centrifuged 10ml (spun) Urine Dip Bedside Urine Glucose Negative Bedside Urine Bilirubin - Negative Bedside Urine Ketone - Negative Urine Specific [place] 1.010 Bedside Urine Occult Blood +++ Bedside Urine pH 6.0 Bedside Urine Protein + 30 Bedside Urine Urobilinogen - Negative Bedside Urine Nitrite - Negative Bedside Urine Leukocytes +/- 15 Esterase Discharge Plan Departure Patient Disposition: Home Clinical Impression: Hypertrophy of prostate Urinary tract infection with hematuria Qualifiers: Urinary tract infection type: acute cystitis Qualified Code(s): N30.01 - Acute cystitis with hematuria Instructions: DI for Urinary Tract Infection (UTI) Activity Restrictions/Additional Instructions: Dear Mr. Cruz, Thank you for coming to the emergency department today. You were evaluated for blood in your urine and left-sided low back pain. Your lab work was overall reassuring, but your urinalysis did show blood and bacteria concerning for infection. CT scan of your abdomen and pelvis revealed enlarged prostate and bladder wall thickening consistent with chronic bladder outlet obstruction. You were treated with a dose of IV antibiotics and I have sent an additional 7 days of antibiotics your pharmacy. You will be called in about 3 days if your urine culture determines that a different antibiotic as needed. It is very important to follow up with your urologist, Dr. Rojas, for further evaluation and management. Please return to the emergency department immediately if you are passing large clots of blood, unable to urinate, fevers, chills, vomiting, any other concerns. Please follow up with your primary care doctor within the next 2-3 days for ER follow-up. (If you do not have a PCP you can call [phone]. ?to schedule an appointment with an [facility] Primary Care Provider) IF YOU DEVELOP ANY NEW OR WORSENING SYMPTOMS, RETURN TO THE ER! Please read the attached instructions, they highlight more specific treatments and interventions for you at home. Thank you for letting me participate in your care, Kathrine Saenz PA-C Prescriptions: New cefuroxime axetil 500 mg tablet 500 mg PO BID 7 Days Qty: 14 0RF No Action ciprofloxacin HCl 500 mg tablet 500 mg PO BID Qty: 12 0RF atorvastatin 10 mg tablet 10 mg PO DAILY sildenafil 100 mg Tablet 100 mg PO DAILY PRN (Reason: Sexual Activity) terazosin 10 mg capsule 10 mg PO DAILY Referrals: Katerine Dimas ARNP [Primary Care Provider] - Stand Alone Forms: Patient Portal/API/Survey ED Sign-out <Angie Mariscal MD - Last Filed: 10/16/24 20:23> Cosign ED Attending Coscristoature Attestation: I did not see this patient. I was available all times for consultation.
[2024-10-16 16:14] LABS: Urine Volume 10mL (spun)
[2024-10-16 16:19] LABS: Bacteria Urine Moderate (10-30); Culture Indicated Urine Specimen Cultured; RBC Urine 30-100/HPF (0-5/HPF); Squamous Epithelial Cell Urine None Seen (0-5/HPF); WBC Urine 1-5/HPF (0-5/HPF)
[2024-10-16] MEDS: SODIUM CHLORIDE 0.9% 1,000 ML 500 ML IV (16:41)
[2024-10-16 16:45] LABS: Add Manual Diff / Slide Review NO; Basophils Absolute Auto 100 /uL (0-100); Basophils Percent Auto 0.9 % (0-2); Eosinophils Absolute Auto 300 /uL (0-450); Eosinophils Percent Auto 2.7 % (2-4); Hematocrit 44.5 % (41-53); Hemoglobin 15.1 g/dL (13.5-17.5); Lymphocytes Absolute Auto 1500 /uL (1100-4500); Lymphocytes Percent Auto 15.8 % (25-40); Mean Corpuscular Hemoglobin 32.7 PG (26-34); Mean Corpuscular Volume 96.3 fL (80-100); Monocytes Absolute Auto 600 /uL (0-900); Monocytes Percent Auto 6.8 % (3-14); Neutrophils Absolute Auto 6800 /uL (1500-7000); Neutrophils Percent Auto 73.8 % (50-75); Platelet Count 292 X10^3/uL (150-400); Red Blood Cell Count 4.62 X10^6/uL (4.5-5.9); Red Cell Distribution Width 13.8 % (11.6-14.8); White Blood Cell Count 9.2 X10^3/uL (4.5-11.0)
[2024-10-16 16:50] LABS: INR 1.1 (0.9-1.3); Prothrombin Time 11.9 SECONDS (9.4-12.5)
[2024-10-16 16:53] LABS: PTT Partial Thromboplastin Tim 32 SECONDS (25.1-36.5)
[2024-10-16 16:54] LABS: Alanine Aminotransferase 27 IU/L (<50); Albumin 4.3 g/dL (3.5-5.0); Albumin Globulin Ratio 1.5 (1.0-2.8); Alkaline Phosphatase 87 U/L (38-126); Aspartate Aminotransferase 28 IU/L (17-59); BUN Creatinine Ratio 24.7 (6-22); Bilirubin Total 0.7 mg/dL (0.2-1.3); Blood Urea Nitrogen 21 mg/dL (9-20); Calcium 8.9 mg/dL (8.4-10.2); Carbon Dioxide 24 mmol/L (22-32); Chloride 105 mmol/L (98-107); Estimated Glomerular Filt Rate > 60 mL/min (>60); Globulin 2.8 g/dL (1.7-4.1); Glucose 96 mg/dL (80-110); HEMOLYSIS < 15 (0-50); Lipase 88 U/L (23-300); Potassium 4.1 mmol/L (3.4-5.1); Sodium 137 mmol/L (137-145); Total Protein 7.1 g/dL (6.3-8.2)
[2024-10-16] MEDS: cefTRIAXone 2,000 MG in SODIUM CHLORIDE 0.9% 100 ML 200 MG IV (19:20)
[2024-10-16 20:00] VITALS: BP 139/78; PULSE 72; RESP 18; O2SAT 99
--- NOTE | 2024-10-30 16:14 | PC.NURSE ---
Pt called asking questions about what abx he was prescribed from his ED visit on 10/16/24. Informed pt he was discharged home on cipro. All questions answered.
== END 2024-10-16 19:57 | disposition home or self-care (01) ==
PROVIDERS: Emergency Provider Physician Assistant; PCP Internal Medicine
DX: N30.01 Acute cystitis with hematuria (principal); N40.1 Benign prostatic hyperplasia with lower urinary tract symptoms; M54.50 Low back pain, unspecified
CPT/HCPCS: 36415; 74178; 80053; 81003; 81015; 83690; 85025; 85610; 85730; 87086; 96361; 96365; 99284; J0696

== ENCOUNTER → 2025-01-11 15:16 | Outpatient (CLI) | payer OTHER, SELFPAY ==
--- NOTE | 2025-01-11 15:19 | DI.RAD.S_ITS ---
PROCEDURE: XR HIP LT 2V INDICATIONS: Pain in left hip TECHNIQUE: 3 views of the hip were acquired. COMPARISON: None. FINDINGS: Bones: No evidence of hardware complication status post left total hip arthroplasty. Hardware within the right hip is noted, also without evidence of complication status post total arthroplasty. No fractures or dislocations. No suspicious bony lesions. The visualized pelvic ring appears intact. Soft tissues: No suspicious soft tissue calcifications or masses. IMPRESSION: No evidence of acute osseous abnormality or hardware complication status post bilateral total hip arthroplasty. Dictated by: David Torres M.D. on 01/12/2025 at 2:15 Approved by: David Torres M.D. on 01/12/2025 at 2:16
== END ==
PROVIDERS: PCP Family Medicine; Referring Provider Family Medicine; Visit Provider Family Medicine
DX: M25.552 Pain in left hip (principal); G89.29 Other chronic pain; Z96.643 Presence of artificial hip joint, bilateral
CPT/HCPCS: 73502